=== PATIENT | male | born 1955 | race Hispanic/Latino ===

== ENCOUNTER 2017-09-23 17:51 | Emergency (ER) | payer MEDICAID ==
[2017-09-23 19:21] LABS: Basophils % (Auto) 0.9 % (0.0-1.8); Eosinophils % (Auto) 1.7 % (0.0-4.3); Hematocrit 45.1 % (35.5-45.6); Hemoglobin 14.9 gm/dl (11.8-15.2); Mean Corpuscular HGB Conc 33 % (32-34); Mean Corpuscular Hemoglobin 29 pg (28-32); Mean Corpuscular Volume 87 fl (84-94); Platelet Count 320 K/mm3 (140-440); Red Blood Count 5.18 M/mm3 (3.65-5.03); Red Cell Distribution Width 14.5 % (13.2-15.2); White Blood Count 14.1 K/mm3 (4.5-11.0)
[2017-09-23 19:31] LABS: Bacteria,Urine 1+ /HPF (Negative); Bilirubin,Urine NEG (Negative); Blood,Urine MOD (Negative); Ketones,Urine NEG (Negative); Leukocyte Esterase,Urine NEG (Negative); Mucus,Urine FEW /HPF; Nitrite,Urine NEG (Negative); Protein,Urine <15 mg/dL mg/dL (Negative); Urobilinogen,Urine < 2.0 mg/dL (<2.0)
[2017-09-23 19:40] LABS: Alanine Aminotransferase 10 units/L (7-56); Albumin 4.7 g/dL (3.9-5); Albumin/Globulin Ratio 1.5 %; Alkaline Phosphatase 63 units/L (35-129); Anion Gap 17 mmol/L; BUN/Creatinine Ratio 17; Blood Urea Nitrogen 17 mg/dL (9-20); Calcium 9.9 mg/dL (8.4-10.2); Carbon Dioxide 30 mmol/L (22-30); Chloride 98.6 mmol/L (98-107); Glucose 103 mg/dL (75-100); Potassium 3.6 mmol/L (3.6-5.0); Sodium 142 mmol/L (137-145); Total Protein 7.8 g/dL (6.3-8.2)
--- NOTE | 2017-09-23 19:44 | Cat Scan Report ---
FINAL REPORT EXAM: CT HEAD/BRAIN WO CON HISTORY: headache TECHNIQUE: Standard unenhanced CT of the head at 5.0 millimeter axial increments PRIORS: None. FINDINGS: The ventricular system is normal in size and configuration. There is no evidence for parenchymal volume loss. Incidental arachnoid cyst is present in the posterior fossa. There is no evidence for mass lesion, mass effect, midline shift, acute intracranial hemorrhage, or acute ischemia/ infarction. Visualized paranasal sinuses are clear. IMPRESSION: Negative CT of the head. No acute intracranial process noted.
[2017-09-23] MEDS ORDERED: ATROVENT IH ONE (22:13)
[2017-09-23] MEDS ORDERED: PROVENTIL IH ONE (22:13)
[2017-09-23] MEDS ORDERED: NACL ONE (22:22)
--- NOTE | 2017-09-23 22:30 | Emergency Department Report ---
ED Dizziness HPI - General Chief Complaint: Dizziness Stated Complaint: HEADACHE/DIZINESS Time Seen by Provider: 09/23/17 22:10 Source: patient Mode of arrival: Ambulatory Limitations: No Limitations - History of Present Illness Initial Comments: 61 YO MALE WITH MULTIPLE COMPLAINTS WHO RELATES THAT 2 YEARS AGO HE HAD HEAD TRAUMA WHICH CAUSED HIM TO HAVE A SEIZURE. NOW FOR THE PAST 5 WEEKS , HE HAS BEEN EXPERIENCING PAIN IN HIS HEAD WHERE THE TRAUMA WAS. THIS PAIN COMES WHEN HE LAYS DOWN, AND HE HAS BEEN DIZZY WHEN GETTING UP FOR 5 WEEKS. HE ALSO HAS BLOOD IN THE URINE AND LEFT FLANK PAIN FOR 2 DAYS AND FELT THAT THIS MIGHT BE A KEDNEYS TONE. HE WAS TOLD THE HE HAD. HE DENIES CHEST PAIN, S0B. HE DOES NOT WORK AND IS ON DISABILITY . 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 MD Complaint: dizziness -: week(s) (5) Timing: unsure Description: sense of movement History of Same: No History of Trauma: Yes (2 YEARS AGO HEAD TRAUMA) Severity: mild Worsens With: movement, position (GETTING UP ) Associated Symptoms: denies: chest pain, cough, diaphoresis, fever/chills, loss of appetite, rash, seizure, shortness of breath, syncope, weakness - Related Data Home Medications Medication Instructions Recorded Confirmed Last Taken Levothyroxine [Synthroid] 50 mcg PO DAILY 06/14/15 06/21/15 Unknown Lisinopril 10 mg PO DAILY 06/14/15 06/21/15 Unknown Triamter/Hctz 37.5-25 mg 1 tab PO DAILY 06/14/15 06/21/15 Unknown levETIRAcetam [Keppra TAB] 1,000 mg PO BID 06/14/15 06/21/15 Unknown Previous Rx's Medication Instructions Recorded Last Taken Type Folic Acid [Folvite] 1 mg PO QDAY #30 tablet 06/23/15 Unknown Rx Thiamine [Vitamin B-1] 100 mg PO QDAY #30 tablet 06/23/15 Unknown Rx HYDROcodone/APAP 5-325 [White 1 each PO Q6HR PRN #15 tablet 07/13/16 Unknown Rx 5/325] Ibuprofen [Motrin 600 MG tab] 600 mg PO Q8H PRN #30 tablet 07/13/16 Unknown Rx Ibuprofen [Motrin] 800 mg PO Q8HR PRN #15 tablet 10/05/16 Unknown Rx HYDROcodone/APAP 7.5-325 [White 1 each PO Q6HR PRN #10 tablet 09/24/17 Unknown Rx 7.5-325 mg TAB] Allergies Allergy/AdvReac Type Severity Reaction Status Date / Time aspirin AdvReac Bleeding Verified 09/23/17 18:23 tramadol AdvReac Seizure Verified 09/23/17 18:23 ED Review of Systems ROS: Stated complaint: HEADACHE/DIZINESS Other details as noted in HPI Constitutional: denies: chills, fever Eyes: denies: eye pain, eye discharge, vision change ENT: denies: ear pain, throat pain Respiratory: denies: cough, shortness of breath, wheezing Cardiovascular: denies: chest pain, palpitations Endocrine: no symptoms reported Gastrointestinal: abdominal pain (LEFT ABDOMEN). denies: nausea, diarrhea Genitourinary: hematuria. denies: urgency, dysuria Musculoskeletal: back pain (LEFT SIDE). denies: joint swelling, arthralgia Skin: denies: rash, lesions Neurological: headache. denies: weakness, paresthesias Psychiatric: denies: anxiety, depression Hematological/Lymphatic: denies: easy bleeding, easy bruising ED Past Medical Hx - Past Medical History Hx Hypertension: Yes Hx Congestive Heart Failure: No Hx Diabetes: No Hx Seizures: Yes Hx Asthma: No Hx COPD: No Additional medical history: gout. Chronic alcohol abuse - Surgical History Additional Surgical History: spleen removal - Social History Smoking Status: Never Smoker Substance Use Type: None - Medications Home Medications: Home Medications Medication Instructions Recorded Confirmed Last Taken Type Levothyroxine [Synthroid] 50 mcg PO DAILY 06/14/15 06/21/15 Unknown History Lisinopril 10 mg PO DAILY 06/14/15 06/21/15 Unknown History Triamter/Hctz 37.5-25 mg 1 tab PO DAILY 06/14/15 06/21/15 Unknown History levETIRAcetam [Keppra TAB] 1,000 mg PO BID 06/14/15 06/21/15 Unknown History Folic Acid [Folvite] 1 mg PO QDAY #30 tablet 06/23/15 Unknown Rx Thiamine [Vitamin B-1] 100 mg PO QDAY #30 tablet 06/23/15 Unknown Rx HYDROcodone/APAP 5-325 [White 1 each PO Q6HR PRN #15 tablet 07/13/16 Unknown Rx 5/325] Ibuprofen [Motrin 600 MG tab] 600 mg PO Q8H PRN #30 tablet 07/13/16 Unknown Rx Ibuprofen [Motrin] 800 mg PO Q8HR PRN #15 tablet 10/05/16 Unknown Rx HYDROcodone/APAP 7.5-325 [White 1 each PO Q6HR PRN #10 tablet 09/24/17 Unknown Rx 7.5-325 mg TAB] ED Physical Exam - General Limitations: No Limitations General appearance: alert, in no apparent distress - Head Head exam: Present: atraumatic, normocephalic - Eye Eye exam: Present: normal appearance, EOMI - ENT ENT exam: Present: mucous membranes moist - Neck Neck exam: Present: normal inspection - Respiratory Respiratory exam: Present: normal lung sounds bilaterally. Absent: respiratory distress, wheezes, rales, rhonchi - Cardiovascular Cardiovascular Exam: Present: regular rate, normal rhythm, normal heart sounds. Absent: systolic murmur, diastolic murmur, rubs, gallop - GI/Abdominal GI/Abdominal exam: Present: soft, tenderness (LEFT FLANK), normal bowel sounds, other (MIDLINE LARGE SURGICAL SCAR). Absent: distended, guarding, rebound - Rectal Rectal exam: Present: deferred - Extremities Exam Extremities exam: Present: normal inspection, full ROM - Back Exam Back exam: Present: normal inspection, full ROM, tenderness (LEFT FLANK) - Neurological Exam Neurological exam: Present: alert, oriented X3, CN II-XII intact, normal gait. Absent: altered, motor sensory deficit - Psychiatric Psychiatric exam: Present: normal affect, normal mood - Skin Skin exam: Present: warm, dry, intact, normal color. Absent: rash ED Course Vital Signs 09/23/17 09/23/17 09/23/17 18:25 21:57 22:57 Temperature 98.7 F Pulse Rate 62 87 Pulse Rate [ Right Lower Lobe] Respiratory 16 18 18 Rate Respiratory Rate [Right Lower Lobe] Blood Pressure 142/97 Blood Pressure 125/83 [Left] O2 Sat by Pulse 98 97 Oximetry 09/23/17 23:50 Temperature Pulse Rate Pulse Rate [ 85 Right Lower Lobe] Respiratory Rate Respiratory 16 Rate [Right Lower Lobe] Blood Pressure Blood Pressure [Left] O2 Sat by Pulse Oximetry ED Medical Decision Making - Lab Data Result diagrams: 09/23/17 18:41 09/23/17 18:41 - Radiology Data Radiology results: report reviewed (CXR:NEGATIVE CT ABD/PELVIS:NEGATIVE CT HEAD : NEGATIVE) - Medical Decision Making ALL STUDIES ARE NEGATIVE THUS I WILL D/C PT HOME. HE IS ASKING FOR PAIN MEDICATION. I DO NOT KNOW WHAT I AM TREATING SICE THE STUDIES ARE NEGATIVE Critical care attestation.: If time is entered above; I have spent that time in minutes in the direct care of this critically ill patient, excluding procedure time. ED Disposition Clinical Impression: Dizziness due to old head injury, Flank pain, Renal cyst Clinical Impression: (Ruled Out): Dizziness Disposition: TO HOME OR SELFCARE Is pt being admited?: No Does the pt Need Aspirin: No Condition: Stable Instructions: Dizziness (ED), Acute Headache (ED), Flank Pain (ED) Additional Instructions: RETURN RTO THE ER FOR ANY CONCERNS Prescriptions: HYDROcodone/APAP 7.5-325 [White 7.5-325 mg TAB] 1 each PO Q6HR PRN #10 tablet PRN Reason: Pain Referrals: PRIMARY CARE, [Primary Care Provider] - 3-[address] [facility] [Outside] - 3-5 Days Time of Disposition: 01:49
[2017-09-23] MEDS ORDERED: ZOFRAN IV ONE (22:33)
[2017-09-23] MEDS ORDERED: MORPHINE IV ONE (22:33)
[2017-09-23] MEDS ORDERED: NACL 0.9% 1000 ML 1,000 ML IV ONE (22:38)
--- NOTE | 2017-09-23 23:40 | Cat Scan Report ---
FINAL REPORT EXAM: CT ABDOMEN PELVIS WO/W CON HISTORY: ABD PAIN TECHNIQUE: Standard unenhanced and enhanced CT of the abdomen and pelvis. Delayed imaging through the kidneys and bladder was obtained. Coronal and sagittal reconstruction was also performed. Contrast: 100 mL Omnipaque 300 given IV. PRIORS: None. FINDINGS: Within the abdomen, the liver, spleen, pancreas, gallbladder, adrenal glands, and left kidney are unremarkable. A subcentimeter hypodensity in the right kidney is likely a small cyst. No evidence for retroperitoneal or pelvic lymphadenopathy is seen. Moderate stool is present throughout the colon. The bowel loops have normal caliber. No soft tissue mass, fluid collection, inflammatory change, or free air is seen within the abdomen or pelvis. The appendix is normal. Ventral hernia repair is noted over the midline. Calcification of the aorta is seen. Within the pelvis, the bladder is unremarkable. The prostate is normal. No evidence for mass or lymphadenopathy is seen in the pelvis. Sigmoid diverticulosis is noted without active diverticulitis. Images through the upper abdomen include the lung bases which are expanded and clear. Bony structures show severe disc space narrowing L5-S1. IMPRESSION: 1. no acute intra-abdominal process noted. 2. The subcentimeter hypodensity in the right kidney is likely a small cyst. 3. Evidence for prior ventral hernia repair 4. Sigmoid diverticulosis
--- NOTE | 2017-09-23 23:43 | XRay Report ---
FINAL REPORT EXAM: XR CHEST ROUTINE 2V HISTORY: PAIN . TECHNIQUE: PA and lateral views of the chest PRIORS: None. FINDINGS: Lines, tubes, and devices: N/A Lungs and pleura: Trachea is normal in position. Lungs are clear of infiltrate, pleural effusion, vascular congestion, or pneumothorax. Cardiomediastinal silhouette: Cardiac and mediastinal silhouettes are unremarkable. Other: Bony structures demonstrate degenerative disc changes in the mid and lower thoracic spine. Remote healed rib fractures involving the posterior lateral right 2nd through 6th ribs is seen. Degenerative changes in the right glenohumeral joint are present. IMPRESSION: No acute cardiopulmonary process seen.
[2017-09-24 00:13] LABS: Creatine Kinase 50 units/L (55-170)
[2017-09-24 00:16] LABS: Creatine Kinase MB < 1.0 ng/mL (0.0-4.0)
[2017-09-24] MEDS ORDERED: PERCOCET 5/325 PO ONE (01:51)
[2017-09-24 02:22] VITALS: BP 132/80
== END 2017-09-24 02:23 | disposition home or self-care (01) ==
LOC: ED 17:51
DX: R42 Dizziness and giddiness (principal); N28.1 Cyst of kidney, acquired; R10.9 Unspecified abdominal pain; R56.9 Unspecified convulsions; Z88.6 Allergy status to analgesic agent; Z88.8 Allergy status to other drugs, medicaments and biological substances
CPT/HCPCS: 36415; 70450; 71020; 74178; 80053; 81001; 82550; 82553; 84484; 85025; 85379; 94640; 96361; 96374; 96375; 99285; J2270; J2405; J7030; Q9967

== ENCOUNTER 2017-10-22 17:16 | Emergency (ER) | payer MEDICAID ==
[2017-10-22] MEDS ORDERED: REGLAN IV ONE (17:46)
--- NOTE | 2017-10-22 17:50 | Emergency Department Report ---
Chief Complaint: Abdominal Pain Stated Complaint: HEADACHE/ SIDE PAIN Time Seen by Provider: 10/22/17 17:35 - HPI History of Present Illness: Seen a month ago for similar still with headaches flank pain hematuria, worse headache worse low back pain question dysuria. - Exam Vital Signs: Vital Signs 10/22/17 17:22 Temperature 98.3 F Pulse Rate 63 Respiratory 18 Rate Blood Pressure 143/83 O2 Sat by Pulse 98 Oximetry Physical Exam: Strength is equal bilaterally vital signs stable afebrile atraumatic normocephalic, neck supple. MSE screening note: Focused history and physical exam performed. Due to findings the following was ordered: Laboratory studies and imaging patient to main ED for further evaluation ED Disposition for MSE Condition: Stable
[2017-10-22 18:29] LABS: Bilirubin,Urine NEG (Negative); Blood,Urine MOD (Negative); Ketones,Urine NEG (Negative); Leukocyte Esterase,Urine TR (Negative); Mucus,Urine FEW /HPF; Nitrite,Urine NEG (Negative); Protein,Urine <15 mg/dL mg/dL (Negative); Urobilinogen,Urine < 2.0 mg/dL (<2.0)
[2017-10-22 18:35] LABS: Basophils % (Auto) 0.8 % (0.0-1.8); Eosinophils % (Auto) 0.1 % (0.0-4.3); Hematocrit 41.1 % (35.5-45.6); Hemoglobin 13.9 gm/dl (11.8-15.2); Mean Corpuscular HGB Conc 34 % (32-34); Mean Corpuscular Hemoglobin 30 pg (28-32); Mean Corpuscular Volume 90 fl (84-94); Platelet Count 253 K/mm3 (140-440); Red Blood Count 4.57 M/mm3 (3.65-5.03); Red Cell Distribution Width 14.8 % (13.2-15.2); White Blood Count 11.1 K/mm3 (4.5-11.0)
[2017-10-22 18:38] LABS: Alanine Aminotransferase 17 units/L (7-56); Albumin/Globulin Ratio 1.4 %; Alkaline Phosphatase 47 units/L (35-129); Anion Gap 18 mmol/L; BUN/Creatinine Ratio 16; Blood Urea Nitrogen 16 mg/dL (9-20); Carbon Dioxide 27 mmol/L (22-30); Chloride 100.6 mmol/L (98-107); Glucose 183 mg/dL (75-100); Potassium 3.8 mmol/L (3.6-5.0); Sodium 142 mmol/L (137-145); Total Protein 6.9 g/dL (6.3-8.2)
--- NOTE | 2017-10-22 18:45 | Cat Scan Report ---
FINAL REPORT PROCEDURE: CT HEAD/BRAIN WO CON TECHNIQUE: Computerized tomography of the head was performed without contrast material. HISTORY: Headache COMPARISON: Prior study 09/23/2017 FINDINGS: Brain: There is no evidence of intracranial hemorrhage. No parenchymal hemorrhage is seen. No mass lesions or mass effect is identified. No abnormal extra-axial fluid collections or masses are seen. There is CSF dense material in the posterior inferior aspect of the posterior fossa of the brain. This is unchanged from the prior study. 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 I cannot exclude an arachnoid cyst. This is stable. There is some decreased density seen in the periventricular white matter without mass effect. This is fairly symmetric and does not exhibit any mass effect consistent with gliosis probably on the basis of microvascular disease or white matter changes of aging. Ventricles: The ventricles, sulcal pattern and fissures are prominent consistent with atrophy. Bones: No evidence of acute fracture. Paranasal sinuses: Visualized portions are clear. Mastoid air cells: clear IMPRESSION: Stable exam. No acute intracranial abnormalities are identified. There is evidence of mild atrophy and gliosis. This is unchanged. 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 This is unchanged. No other abnormalities are identified.
[2017-10-22 19:05] LABS: Calcium 9.7 mg/dL (8.4-10.2)
--- NOTE | 2017-10-22 19:15 | Cat Scan Report ---
FINAL REPORT PROCEDURE: CT ABDOMEN PELVIS WO CON TECHNIQUE: Computerized axial tomography of the abdomen and pelvis was performed without intravenous contrast. This study is performed without intravascular contrast material and its sensitivity for abdominal and pelvic pathology, including neoplasms, inflammation, abscess, free fluid, thrombosis, arterial dissection and infarction, is reduced compared with a contrast enhanced study. Prior CT scan abdomen and pelvis 09/23/2017 HISTORY: flank pain. hematuria COMPARISON: No prior studies are available for comparison. FINDINGS: Lower Lung levin: No focal abnormality seen. Upper Abdomen: Gallbladder is partially contracted otherwise unremarkable. The liver, the adrenal glands, the pancreas and the spleen are unremarkable. There is a surgical mesh visualized in the anterior abdominal wall superior to the umbilicus. No hernias are visualized. Kidneys, Ureters and Urinary bladder: Renal arterial calcifications visualized. No renal calculi or masses are identified. Ureters are not distended. No ureteral calculi are visualized. Urinary bladder is only partially filled and shows no focal abnormality. Calcifications are seen in the lower pelvis which appear to represent phleboliths. Retroperitoneum: Atherosclerotic changes are seen in the abdominal aorta. No aneurysm is visualized. Nonspecific subcentimeter lymph nodes are seen in the retroperitoneum. No pathologically enlarged lymph nodes are identified. Bowel: Mild diverticulosis seen in the left side of the colon without evidence of diverticulitis. No evidence of bowel obstruction or ascites. There is no free intraperitoneal gas. Normal-appearing appendix is visualized in the right lower quadrant. Other: No acute bony abnormalities are seen. IMPRESSION: No acute abnormalities are identified.. Renal arterial calcifications visualized. No renal or ureteral calculi are identified. Postsurgical changes anterior abdominal wall. Mild diverticulosis left side of the colon without evidence of diverticulitis. No other abnormalities are identified.
[2017-10-22] MEDS ORDERED: TORADOL IV ONE (20:53)
--- NOTE | 2017-10-22 20:59 | Emergency Department Report ---
ED Abdominal Pain HPI - General Chief Complaint: Abdominal Pain Stated Complaint: HEADACHE/ SIDE PAIN Time Seen by Provider: 10/22/17 17:35 Source: patient Mode of arrival: Ambulatory Limitations: No Limitations - History of Present Illness Initial Comments: Patient is 61 years old male history of kidney stone presented today with right flank pain and headache for the last 3 days. Patient stated he had hematuria and dysuria, increased frequency. Patient denied any fever. Patient has similar presentation last months. MD Complaint: abdominal pain -: days(s) Location: R flank Migration to: no migration Severity: moderate Quality: stabbing Associated Symptoms: nausea, vomiting - Related Data Home Medications Medication Instructions Recorded Confirmed Last Taken Levothyroxine [Synthroid] 50 mcg PO DAILY 06/14/15 06/21/15 Unknown Lisinopril 10 mg PO DAILY 06/14/15 06/21/15 Unknown Triamter/Hctz 37.5-25 mg 1 tab PO DAILY 06/14/15 06/21/15 Unknown levETIRAcetam [Keppra TAB] 1,000 mg PO BID 06/14/15 06/21/15 Unknown Previous Rx's Medication Instructions Recorded Last Taken Type Folic Acid [Folvite] 1 mg PO QDAY #30 tablet 06/23/15 Unknown Rx Thiamine [Vitamin B-1] 100 mg PO QDAY #30 tablet 06/23/15 Unknown Rx HYDROcodone/APAP 5-325 [[place] 1 each PO Q6HR PRN #15 tablet 07/13/16 Unknown Rx 5/325] Ibuprofen [Motrin 600 MG tab] 600 mg PO Q8H PRN #30 tablet 07/13/16 Unknown Rx Ibuprofen [Motrin] 800 mg PO Q8HR PRN #15 tablet 10/05/16 Unknown Rx HYDROcodone/APAP 7.5-325 [[place] 1 each PO Q6HR PRN #10 tablet 09/24/17 Unknown Rx 7.5-325 mg TAB] Allergies Allergy/AdvReac Type Severity Reaction Status Date / Time aspirin AdvReac Bleeding Verified 09/23/17 18:23 tramadol AdvReac Seizure Verified 09/23/17 18:23 ED Review of Systems ROS: Stated complaint: HEADACHE/ SIDE PAIN Other details as noted in HPI Comment: All other systems reviewed and negative Constitutional: denies: chills, fever Respiratory: denies: cough Cardiovascular: denies: chest pain, palpitations, dyspnea on exertion Gastrointestinal: abdominal pain, nausea. denies: vomiting, diarrhea, constipation, hematemesis, melena, hematochezia Genitourinary: urgency, dysuria, frequency, hematuria. denies: testicular pain , testicular mass Neurological: headache. denies: weakness, numbness, paresthesias, confusion, abnormal gait, vertigo ED Past Medical Hx - Past Medical History Hx Hypertension: Yes Hx Congestive Heart Failure: No Hx Diabetes: No Hx Seizures: Yes Hx Asthma: No Hx COPD: No Additional medical history: gout. Chronic alcohol abuse - Surgical History Additional Surgical History: spleen removal - Social History Smoking Status: Never Smoker Substance Use Type: None - Medications Home Medications: Home Medications Medication Instructions Recorded Confirmed Last Taken Type Levothyroxine [Synthroid] 50 mcg PO DAILY 06/14/15 06/21/15 Unknown History Lisinopril 10 mg PO DAILY 06/14/15 06/21/15 Unknown History Triamter/Hctz 37.5-25 mg 1 tab PO DAILY 06/14/15 06/21/15 Unknown History levETIRAcetam [Keppra TAB] 1,000 mg PO BID 06/14/15 06/21/15 Unknown History Folic Acid [Folvite] 1 mg PO QDAY #30 tablet 06/23/15 Unknown Rx Thiamine [Vitamin B-1] 100 mg PO QDAY #30 tablet 06/23/15 Unknown Rx HYDROcodone/APAP 5-325 [[place] 1 each PO Q6HR PRN #15 tablet 07/13/16 Unknown Rx 5/325] Ibuprofen [Motrin 600 MG tab] 600 mg PO Q8H PRN #30 tablet 07/13/16 Unknown Rx Ibuprofen [Motrin] 800 mg PO Q8HR PRN #15 tablet 10/05/16 Unknown Rx HYDROcodone/APAP 7.5-325 [[place] 1 each PO Q6HR PRN #10 tablet 09/24/17 Unknown Rx 7.5-325 mg TAB] ED Physical Exam - General Limitations: No Limitations General appearance: alert, in no apparent distress - Head Head exam: Present: atraumatic, normocephalic, normal inspection - Eye Eye exam: Present: normal appearance, PERRL - ENT ENT exam: Present: normal exam, normal orophraynx, mucous membranes moist - Neck Neck exam: Present: normal inspection, full ROM. Absent: tenderness, meningismus, lymphadenopathy, thyromegaly - Respiratory Respiratory exam: Present: normal lung sounds bilaterally. Absent: respiratory distress, wheezes, rales, rhonchi, stridor, chest wall tenderness, accessory muscle use, decreased breath sounds, prolonged expiratory - Cardiovascular Cardiovascular Exam: Present: regular rate, normal rhythm, normal heart sounds - GI/Abdominal GI/Abdominal exam: Present: soft, normal bowel sounds. Absent: distended, tenderness, guarding, rebound, rigid, organomegaly, mass, bruit, pulsatile mass , hernia - Extremities Exam Extremities exam: Present: normal inspection, normal capillary refill. Absent: tenderness, pedal edema, joint swelling, calf tenderness - Back Exam Back exam: Present: normal inspection, full ROM, CVA tenderness (R). Absent: tenderness, CVA tenderness (L), muscle spasm, paraspinal tenderness, vertebral tenderness - Neurological Exam Neurological exam: Present: alert, oriented X3, CN II-XII intact, normal gait - Skin Skin exam: Present: warm, intact, normal color ED Course Vital Signs 10/22/17 17:22 Temperature 98.3 F Pulse Rate 63 Respiratory 18 Rate Blood Pressure 143/83 O2 Sat by Pulse 98 Oximetry ED Medical Decision Making - Lab Data Result diagrams: 10/22/17 17:53 10/22/17 17:53 - Radiology Data Radiology results: report reviewed Referring Physician: KARELY COLLIER Patient Name: ISIDRO RAMIREZ Date of : 1955 Sex: Male Report Date: 2017-10-22 Report Status: Finalized Findings [address] [address] Cat Scan Report Signed Patient: ISIDRO RAMIREZ MR#: [id number] : 1955 Acct:[id number] Age/Sex: 61 / M ADM Date: 10/22/17 Loc: ED Attending Dr: Ordering Physician: KARELY COLLIER MD Date of Service: 10/22/17 Procedure(s): CT head/brain wo con Accession Number(s): [id number] cc: KARELY COLLIER MD FINAL REPORT PROCEDURE: CT HEAD/BRAIN WO CON TECHNIQUE: Computerized tomography of the head was performed without contrast material. HISTORY: Headache COMPARISON: Prior study 09/23/2017 FINDINGS: Brain: There is no evidence of intracranial hemorrhage. No parenchymal hemorrhage is seen. No mass lesions or mass effect is identified. No abnormal extra-axial fluid collections or masses are seen. There is CSF dense material in the posterior inferior aspect of the posterior fossa of the brain. This is unchanged from the prior study. 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 I cannot exclude an arachnoid cyst. This is stable. There is some decreased density seen in the periventricular white matter without mass effect. This is fairly symmetric and does not exhibit any mass effect consistent with gliosis probably on the basis of microvascular disease or white matter changes of aging. Ventricles: The ventricles, sulcal pattern and fissures are prominent consistent with atrophy. Bones: No evidence of acute fracture. Paranasal sinuses: Visualized portions are clear. Mastoid air cells: clear IMPRESSION: Stable exam. No acute intracranial abnormalities are identified. There is evidence of mild atrophy and gliosis. This is unchanged. 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 This is unchanged. No other abnormalities are identified. Transcribed By: DFN Dictated By: BRITTNY MITCHELL MD Electronically Authenticated By: BRITTNY MITCHELL MD Signed Date/Time: 10/22/171441 DD/ 41 TD/TT: 10/22/171441 Referring Physician: KARELY COLLIER Patient Name: ISIDRO RAMIREZ Date of : 1955 Sex: Male Report Date: 2017-10-22 Report Status: Finalized Findings [address] [address] Cat Scan Report Signed Patient: ISIDRO RAMIREZ MR#: [id number] : 1955 Acct:[id number] Age/Sex: 61 / M ADM Date: 10/22/17 Loc: ED Attending Dr: Ordering Physician: KARELY COLLIER MD Date of Service: 10/22/17 Procedure(s): CT abdomen pelvis wo con Accession Number(s): [id number] cc: KARELY COLLIER MD FINAL REPORT PROCEDURE: CT ABDOMEN PELVIS WO CON TECHNIQUE: Computerized axial tomography of the abdomen and pelvis was performed without intravenous contrast. This study is performed without intravascular contrast material and its sensitivity for abdominal and pelvic pathology, including neoplasms, inflammation, abscess, free fluid, thrombosis, arterial dissection and infarction, is reduced compared with a contrast enhanced study. Prior CT scan abdomen and pelvis 09/23/2017 HISTORY: flank pain. hematuria COMPARISON: No prior studies are available for comparison. FINDINGS: Lower Lung levin: No focal abnormality seen. Upper Abdomen: Gallbladder is partially contracted otherwise unremarkable. The liver, the adrenal glands, the pancreas and the spleen are unremarkable. There is a surgical mesh visualized in the anterior abdominal wall superior to the umbilicus. No hernias are visualized. Kidneys, Ureters and Urinary bladder: Renal arterial calcifications visualized. No renal calculi or masses are identified. Ureters are not distended. No ureteral calculi are visualized. Urinary bladder is only partially filled and shows no focal abnormality. Calcifications are seen in the lower pelvis which appear to represent phleboliths. Retroperitoneum: Atherosclerotic changes are seen in the abdominal aorta. No aneurysm is visualized. Nonspecific subcentimeter lymph nodes are seen in the retroperitoneum. No pathologically enlarged lymph nodes are identified. Bowel: Mild diverticulosis seen in the left side of the colon without evidence of diverticulitis. No evidence of bowel obstruction or ascites. There is no free intraperitoneal gas. Normal-appearing appendix is visualized in the right lower quadrant. Other: No acute bony abnormalities are seen. IMPRESSION: No acute abnormalities are identified.. Renal arterial calcifications visualized. No renal or ureteral calculi are identified. Postsurgical changes anterior abdominal wall. Mild diverticulosis left side of the colon without evidence of diverticulitis. No other abnormalities are identified. Transcribed By: EMEKA Dictated By: BRITTNY MITCHELL MD Electronically Authenticated By: BRITTNY MITCHELL MD Signed Date/Time: 10/22/171511 DD/ 11 TD/TT: 10/22/171511 Critical care attestation.: If time is entered above; I have spent that time in minutes in the direct care of this critically ill patient, excluding procedure time. ED Disposition Clinical Impression: Abdominal pain, Headache Disposition: -01 TO HOME OR SELFCARE Is pt being admited?: No Condition: Stable Instructions: Flank Pain (ED), Acute Headache (ED) Referrals: PHILIP CAREY MD [Primary Care Provider] - 3-5 Days
[2017-10-22] MEDS ORDERED: REGLAN ONE (21:11)
[2017-10-22] MEDS ORDERED: TORADOL IM ONE (21:21)
[2017-10-22] MEDS ORDERED: REGLAN IM ONE (21:27)
[2017-10-22 21:37] VITALS: BP 172/93
== END 2017-10-22 21:38 | disposition home or self-care (01) ==
LOC: ED 17:16
DX: R10.9 Unspecified abdominal pain (principal); R51 Headache; I10 Essential (primary) hypertension; R56.9 Unspecified convulsions; Z88.6 Allergy status to analgesic agent; Z88.8 Allergy status to other drugs, medicaments and biological substances
CPT/HCPCS: 36415; 70450; 74176; 80053; 81001; 85025; 96372; 99284; J1885; J2765

== ENCOUNTER 2018-01-18 14:03 | Emergency (ER) | payer MEDICAID ==
[2018-01-18 14:11] VITALS: BP 172/91
--- NOTE | 2018-01-18 15:26 | Cat Scan Report ---
FINAL REPORT PROCEDURE: CT HEAD/BRAIN WO CON TECHNIQUE: Computerized tomography of the head was performed without contrast material. HISTORY: NULL, blurred vision. COMPARISON: Prior CT scan of the brain 10/22/2017 FINDINGS: Brain: There is no evidence of intracranial hemorrhage. No parenchymal hemorrhage is seen. No mass lesions or mass effect is identified. No abnormal extra-axial fluid collections or masses are seen. There is some decreased density seen in the periventricular white matter without mass effect. This is fairly symmetric and does not exhibit any mass effect consistent with gliosis probably on the basis of microvascular disease or white matter changes of aging. Ventricles: The sulcal pattern and fissures are mildly prominent consistent with mild atrophy. Ventricles are normal size and are midline. There is stable prominent CSF space posterior to the cerebellum, posterior fossa likely representing giant cisterna magna. Arachnoid cyst cannot be entirely excluded. This is unchanged. Bones: No evidence of acute fracture. Paranasal sinuses: Visualized portions appear clear. Mastoid air cells: clear IMPRESSION: No acute abnormalities are identified. There is evidence of mild atrophy and gliosis which appears stable. 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 This is unchanged. Arachnoid cyst cannot be entirely excluded.
== END 2018-01-18 21:00 | disposition left against medical advice (07) ==
LOC: ED 14:03
DX: M54.9 Dorsalgia, unspecified (principal); Z53.21 Procedure and treatment not carried out due to patient leaving prior to being seen by health care provider
CPT/HCPCS: 70450

== ENCOUNTER 2018-01-27 18:04 | Emergency (ER) | payer MEDICAID ==
[2018-01-27 18:12] VITALS: BP 126/95
--- NOTE | 2018-01-27 19:57 | Emergency Department Report ---
ED Headache HPI - General Chief Complaint: Headache Stated Complaint: HEAD/NECK PAIN Time Seen by Provider: 01/27/18 19:56 - History of Present Illness Initial Comments: 62-year-old male comes in pain stating that he has pain in the back of his head that goes down into his neck. Patient was seen here a few weeks ago for the same thing and got a CT scan but then left before getting the results. Patient states it has not gotten any better so came back. Patient has past medical history of seizures, hypertension, hypothyroidism, CVA, TIA, osteoarthritis, renal cyst, chronic pain, alcohol abuse, drug abuse,. Patient reports he does not have a primary care provider he's last seen his neurologist about 6 months ago. He reports he is on his last prescription of his Keppra. He reports has multiple allergies to aspirin and NSAIDs and tramadol. Quality: moderate Allergies/Adverse Reactions: Allergies aspirin Adverse Reaction (Verified 09/23/17 18:23) Bleeding NSAIDS (Non-Steroidal Anti-Inflamma Adverse Reaction (Verified 01/18/18 14:15) Unknown tramadol Adverse Reaction (Verified 09/23/17 18:23) Seizure Home Medications: Ambulatory Orders Levothyroxine [Synthroid] 50 mcg PO DAILY 06/14/15 Lisinopril 10 mg PO DAILY 06/14/15 Triamter/Hctz 37.5-25 mg 1 tab PO DAILY 06/14/15 Folic Acid [Folvite] 1 mg PO QDAY #30 tablet 06/23/15 Thiamine [Vitamin B-1] 100 mg PO QDAY #30 tablet 06/23/15 HYDROcodone/APAP 5-325 [[place] 5/325] 1 each PO Q6HR PRN #15 tablet 07/13/16 Ibuprofen [Motrin 600 MG tab] 600 mg PO Q8H PRN #30 tablet 07/13/16 Ibuprofen [Motrin] 800 mg PO Q8HR PRN #15 tablet 10/05/16 HYDROcodone/APAP 7.5-325 [[place] 7.5-325 mg TAB] 1 each PO Q6HR PRN #10 tablet HYDROcodone/APAP 7.5-325 [[place] 7.5-325 mg TAB] 1 each PO Q8HR PRN #9 tablet Tamsulosin [Flomax] 0.4 mg PO QDAY #10 cap 12/25/17 Acetaminophen/Codeine [Tylenol /Codeine # 3 tab] 1 tab PO Q6H PRN #12 tab levETIRAcetam [Keppra TAB] 1,000 mg PO BID 30 Days #60 tablet 01/27/18 ED Review of Systems ROS: Stated complaint: HEAD/NECK PAIN Other details as noted in HPI Constitutional: denies: chills, fever Eyes: denies: eye pain, eye discharge, vision change ENT: denies: ear pain, throat pain Respiratory: denies: cough, shortness of breath, wheezing Cardiovascular: denies: chest pain, palpitations Endocrine: no symptoms reported Gastrointestinal: denies: abdominal pain, nausea, diarrhea Genitourinary: denies: urgency, dysuria Musculoskeletal: denies: back pain, joint swelling, arthralgia Skin: denies: rash, lesions Neurological: headache. denies: weakness, paresthesias Psychiatric: denies: anxiety, depression Hematological/Lymphatic: denies: easy bleeding, easy bruising ED Past Medical Hx - Past Medical History Hx Hypertension: Yes Hx Congestive Heart Failure: No Hx Diabetes: No Hx Seizures: Yes Hx Asthma: No Hx COPD: No Additional medical history: gout - Surgical History Additional Surgical History: spleen removal, hernia repair, ulcers. - Social History Smoking Status: Never Smoker Substance Use Type: None - Medications Home Medications: Home Medications Medication Instructions Recorded Confirmed Last Taken Type Levothyroxine [Synthroid] 50 mcg PO DAILY 06/14/15 06/21/15 Unknown History Lisinopril 10 mg PO DAILY 06/14/15 06/21/15 Unknown History Triamter/Hctz 37.5-25 mg 1 tab PO DAILY 06/14/15 06/21/15 Unknown History Folic Acid [Folvite] 1 mg PO QDAY #30 tablet 06/23/15 Unknown Rx Thiamine [Vitamin B-1] 100 mg PO QDAY #30 tablet 06/23/15 Unknown Rx HYDROcodone/APAP 5-325 [[place] 1 each PO Q6HR PRN #15 tablet 07/13/16 Unknown Rx 5/325] Ibuprofen [Motrin 600 MG tab] 600 mg PO Q8H PRN #30 tablet 07/13/16 Unknown Rx Ibuprofen [Motrin] 800 mg PO Q8HR PRN #15 tablet 10/05/16 Unknown Rx HYDROcodone/APAP 7.5-325 [[place] 1 each PO Q6HR PRN #10 tablet 09/24/17 Unknown Rx 7.5-325 mg TAB] HYDROcodone/APAP 7.5-325 [[place] 1 each PO Q8HR PRN #9 tablet 10/22/17 Unknown Rx 7.5-325 mg TAB] Tamsulosin [Flomax] 0.4 mg PO QDAY #10 cap 10/22/17 Unknown Rx Acetaminophen/Codeine [Tylenol 1 tab PO Q6H PRN #12 tab 01/27/18 Unknown Rx /Codeine # 3 tab] levETIRAcetam [Keppra TAB] 1,000 mg PO BID 30 Days #60 tablet 01/27/18 Unknown Rx ED Physical Exam - General Limitations: No Limitations - Head Head exam: Present: atraumatic, normocephalic - Eye Eye exam: Present: normal appearance - ENT ENT exam: Present: mucous membranes moist - Neck Neck exam: Present: normal inspection - Respiratory Respiratory exam: Present: normal lung sounds bilaterally. Absent: respiratory distress - Cardiovascular Cardiovascular Exam: Present: regular rate, normal rhythm. Absent: systolic murmur, diastolic murmur, rubs, gallop - GI/Abdominal GI/Abdominal exam: Present: soft, normal bowel sounds - Expanded Neurological Exam Expanded Cranial nerves: EOM's Intact: Normal, Gag Reflex: Normal, Tongue Deviation: Normal, Nystagmus: Normal, Facial Sensation: Normal, Facial Palsy with Forehead Movement: Normal, Facial Palsy without Forehead Movement: Normal Cerebellar function: Finger to Nose: Normal, Heel to Brooks: Normal, Romberg: Normal Upper motor neuron: Greg Neglect: Normal, Pronator Drift: Normal Sensory exam: Upper Extremity Light Touch: Normal, Upper Extremity Pin Prick: Normal, Upper Extremity Temperature: Normal, UE 2 Point Discrimination: Normal, Lower Extremity Light Touch: Normal, Lower Extremity Temperature: Normal Motor strength exam: RUE: 5, LUE: 5, RLE: 5, LLE: 5 Best Eye Response ([place]): (4) open spontaneously Best Motor Response ([place]): (6) obeys commands Best Verbal Response ([place]): (5) oriented [place] Total: 15 - Psychiatric Psychiatric exam: Present: normal affect, normal mood - Skin Skin exam: Present: warm, dry, intact, normal color. Absent: rash ED Course Vital Signs 01/27/18 18:09 Temperature 98.9 F Pulse Rate 144 H Respiratory 18 Rate Blood Pressure 126/95 [Right] O2 Sat by Pulse 95 Oximetry - Reevaluation(s) Reevaluation #1: 01/27/18 21:00 Patient reports he feels better since this had the [place] 7.5 mg. Reevaluation #2: 01/27/18 21:19 Patient reports he does not feel dizzy at this time. ED Medical Decision Making - Medical Decision Making Patient has been evaluated by this provider fast track. Chart has been reviewed by this provider CT was reviewed that was done on 01/20/[address] Garrison. Patient's heart rate returns to normal we will discharge patient I will refill this Keppra and is hypertensive medicine. I will refer him to a neurologist as well as her primary care provider. Discharge him on Fioricet for his headaches. Patient verbalized understanding. Critical care attestation.: If time is entered above; I have spent that time in minutes in the direct care of this critically ill patient, excluding procedure time. ED Disposition Clinical Impression: Seizure disorder Headache Qualifiers: Headache type: unspecified Headache chronicity pattern: acute headache Intractability: intractable Qualified Code(s): R51 - Headache Disposition: DC-01 TO HOME OR SELFCARE Is pt being admited?: No Does the pt Need Aspirin: No Condition: Stable Instructions: Acute Headache (ED) Additional Instructions: Please take your pain medication as prescribed. Please follow-up with the neurologist so they can follow you for your seizures and headaches. Please follow-up with the primary care provider to follow here chronic disease management. Prescriptions: Acetaminophen/Codeine [Tylenol /Codeine # 3 tab] 1 tab PO Q6H PRN #12 tab PRN Reason: Pain levETIRAcetam [Keppra TAB] 1,000 mg PO BID 30 Days #60 tablet Referrals: SONYA ARANGO MD [Primary Care Provider] - 3-5 Days [facility] [Provider Group] - 3-5 Days ROSAMARIA HOSKINS MD [Staff Physician] - 3-5 Days DEBBIE ORTEZ MD [Staff Physician] - 3-5 Days GIOVANNI LOVELL MD [Staff Physician] - 3-5 Days Forms: Work/School Release Form(ED)
[2018-01-27] MEDS ORDERED: NORCO 7.5/325 PO ONE (19:59)
== END 2018-01-27 21:35 | disposition home or self-care (01) ==
LOC: ED 18:04
DX: G40.909 Epilepsy, unspecified, not intractable, without status epilepticus (principal); I10 Essential (primary) hypertension; Z88.6 Allergy status to analgesic agent; Z88.8 Allergy status to other drugs, medicaments and biological substances
CPT/HCPCS: 99282

== ENCOUNTER 2018-02-25 19:15 | Emergency (ER) | payer MEDICAID ==
[2018-02-25 19:58] LABS: Basophils # (Auto) 0.1 K/mm3 (0.0-0.1); Basophils % (Auto) 0.7 % (0.0-1.8); Eosinophils # (Auto) 0.1 K/mm3 (0.0-0.4); Eosinophils % (Auto) 1.2 % (0.0-4.3); Hematocrit 39.2 % (35.5-45.6); Hemoglobin 13.3 gm/dl (11.8-15.2); Lymphocytes # (Auto) 4.2 K/mm3 (1.2-5.4); Mean Corpuscular HGB Conc 34 % (32-34); Mean Corpuscular Hemoglobin 30 pg (28-32); Mean Corpuscular Volume 90 fl (84-94); Monocytes # (Auto) 1.2 K/mm3 (0.0-0.8); Monocytes % (Auto) 9.9 % (0.0-7.3); Platelet Count 326 K/mm3 (140-440); Red Blood Count 4.38 M/mm3 (3.65-5.03); Red Cell Distribution Width 13.9 % (13.2-15.2)
[2018-02-25 20:12] LABS: Alanine Aminotransferase 22 units/L (7-56); Albumin 3.9 g/dL (3.9-5); BUN/Creatinine Ratio 11; Blood Urea Nitrogen 9 mg/dL (9-20); Hemolysis Index 2; Lipase 60 units/L (13-60)
[2018-02-25 20:40] LABS: Bilirubin,Urine NEG (Negative); Blood,Urine MOD (Negative); Color,Urine Straw (Yellow); Protein,Urine <15 mg/dL mg/dL (Negative); Urobilinogen,Urine < 2.0 mg/dL (<2.0); WBC,Urine < 1.0 /HPF (0.0-6.0)
[2018-02-25] MEDS ORDERED: SUBLIMAZE IV ONE (23:51)
[2018-02-25] MEDS ORDERED: ZOFRAN IV ONE (23:51)
--- NOTE | 2018-02-25 23:55 | Emergency Department Report ---
ED Abdominal Pain HPI - General Chief Complaint: Abdominal Pain Stated Complaint: STOMACH PAIN Time Seen by Provider: 02/25/18 23:47 Source: patient Mode of arrival: Ambulatory Limitations: No Limitations - History of Present Illness Initial Comments: Patient is 62 years old male with history of hypertension, asthma and kidney stone. Patient presented to the ER complaining of abdominal pain to the left upper and lower quadrant for the last week. Patient stated that he is being also having nausea and vomiting and diarrhea. He denied any fever recently. Patient denied any urinary symptoms. MD Complaint: abdominal pain Location: LUQ, LLQ Radiation: none Migration to: no migration Severity: moderate Severity scale (0 -10): 6 Quality: sharp Associated Symptoms: nausea, vomiting, diarrhea - Related Data Home Medications Medication Instructions Recorded Confirmed Last Taken Levothyroxine [Synthroid] 50 mcg PO DAILY 06/14/15 06/21/15 Unknown Lisinopril 10 mg PO DAILY 06/14/15 06/21/15 Unknown Triamter/Hctz 37.5-25 mg 1 tab PO DAILY 06/14/15 06/21/15 Unknown Previous Rx's Medication Instructions Recorded Last Taken Type Folic Acid [Folvite] 1 mg PO QDAY #30 tablet 06/23/15 Unknown Rx Thiamine [Vitamin B-1] 100 mg PO QDAY #30 tablet 06/23/15 Unknown Rx HYDROcodone/APAP 5-325 [[place] 1 each PO Q6HR PRN #15 tablet 07/13/16 Unknown Rx 5/325] Ibuprofen [Motrin 600 MG tab] 600 mg PO Q8H PRN #30 tablet 07/13/16 Unknown Rx Ibuprofen [Motrin] 800 mg PO Q8HR PRN #15 tablet 10/05/16 Unknown Rx HYDROcodone/APAP 7.5-325 [[place] 1 each PO Q6HR PRN #10 tablet 09/24/17 Unknown Rx 7.5-325 mg TAB] HYDROcodone/APAP 7.5-325 [[place] 1 each PO Q8HR PRN #9 tablet 10/22/17 Unknown Rx 7.5-325 mg TAB] Tamsulosin [Flomax] 0.4 mg PO QDAY #10 cap 10/22/17 Unknown Rx Acetaminophen/Codeine [Tylenol 1 tab PO Q6H PRN #12 tab 01/27/18 Unknown Rx /Codeine # 3 tab] levETIRAcetam [Keppra TAB] 1,000 mg PO BID 30 Days #60 tablet 01/27/18 Unknown Rx Allergies Allergy/AdvReac Type Severity Reaction Status Date / Time aspirin AdvReac Bleeding Verified 09/23/17 18:23 NSAIDS (Non-Steroidal AdvReac Unknown Verified 01/18/18 14:15 Anti-Inflamma tramadol AdvReac Seizure Verified 09/23/17 18:23 ED Review of Systems ROS: Stated complaint: STOMACH PAIN Other details as noted in HPI Comment: All other systems reviewed and negative Constitutional: denies: chills, fever Respiratory: denies: cough, orthopnea, shortness of breath, SOB with exertion, SOB at rest Cardiovascular: denies: chest pain, palpitations, dyspnea on exertion Gastrointestinal: abdominal pain, nausea, vomiting, diarrhea. denies: constipation, hematemesis, melena, hematochezia Genitourinary: denies: urgency, dysuria, frequency, hematuria, discharge Neurological: denies: headache, weakness, numbness, paresthesias, confusion ED Past Medical Hx - Past Medical History Hx Hypertension: Yes Hx CVA: (TIA,CVA WITH LEFT-SIDED WEAKNESS) Hx Congestive Heart Failure: No Hx Diabetes: No Hx Liver Disease: Yes (CYST) Hx Seizures: Yes Hx Asthma: No Hx COPD: No Additional medical history: gout - Surgical History Additional Surgical History: spleen removal, hernia repair, ulcers. - Social History Smoking Status: Never Smoker Substance Use Type: None - Medications Home Medications: Home Medications Medication Instructions Recorded Confirmed Last Taken Type Levothyroxine [Synthroid] 50 mcg PO DAILY 06/14/15 06/21/15 Unknown History Lisinopril 10 mg PO DAILY 06/14/15 06/21/15 Unknown History Triamter/Hctz 37.5-25 mg 1 tab PO DAILY 06/14/15 06/21/15 Unknown History Folic Acid [Folvite] 1 mg PO QDAY #30 tablet 06/23/15 Unknown Rx Thiamine [Vitamin B-1] 100 mg PO QDAY #30 tablet 06/23/15 Unknown Rx HYDROcodone/APAP 5-325 [[place] 1 each PO Q6HR PRN #15 tablet 07/13/16 Unknown Rx 5/325] Ibuprofen [Motrin 600 MG tab] 600 mg PO Q8H PRN #30 tablet 07/13/16 Unknown Rx Ibuprofen [Motrin] 800 mg PO Q8HR PRN #15 tablet 10/05/16 Unknown Rx HYDROcodone/APAP 7.5-325 [[place] 1 each PO Q6HR PRN #10 tablet 09/24/17 Unknown Rx 7.5-325 mg TAB] HYDROcodone/APAP 7.5-325 [[place] 1 each PO Q8HR PRN #9 tablet 10/22/17 Unknown Rx 7.5-325 mg TAB] Tamsulosin [Flomax] 0.4 mg PO QDAY #10 cap 10/22/17 Unknown Rx Acetaminophen/Codeine [Tylenol 1 tab PO Q6H PRN #12 tab 01/27/18 Unknown Rx /Codeine # 3 tab] levETIRAcetam [Keppra TAB] 1,000 mg PO BID 30 Days #60 tablet 01/27/18 Unknown Rx ED Physical Exam - General Limitations: No Limitations General appearance: alert, in no apparent distress - Head Head exam: Present: atraumatic, normocephalic, normal inspection - Eye Eye exam: Present: normal appearance, PERRL - ENT ENT exam: Present: normal exam, normal orophraynx, mucous membranes moist - Neck Neck exam: Present: normal inspection, full ROM. Absent: tenderness, meningismus, lymphadenopathy, thyromegaly - Respiratory Respiratory exam: Present: normal lung sounds bilaterally - Cardiovascular Cardiovascular Exam: Present: regular rate, normal rhythm, normal heart sounds - GI/Abdominal GI/Abdominal exam: Present: soft, tenderness, normal bowel sounds. Absent: distended, guarding, rebound, rigid, organomegaly, mass, bruit, pulsatile mass, hernia - Extremities Exam Extremities exam: Present: normal inspection, full ROM, normal capillary refill - Back Exam Back exam: Present: normal inspection, full ROM. Absent: tenderness, CVA tenderness (R), CVA tenderness (L) - Neurological Exam Neurological exam: Present: alert, oriented X3, CN II-XII intact, normal gait ED Course Vital Signs 02/25/18 02/26/18 02/26/18 19:36 00:12 00:15 Temperature 97.7 F Pulse Rate 64 Respiratory 97 H Rate Blood Pressure 159/92 128/82 O2 Sat by Pulse 94 94 Oximetry 02/26/18 02/26/18 02/26/18 00:29 00:30 01:57 Temperature 98.1 F Pulse Rate Respiratory 18 Rate Blood Pressure 123/83 O2 Sat by Pulse Oximetry 02/26/18 02:32 Temperature Pulse Rate Respiratory 12 Rate Blood Pressure O2 Sat by Pulse 96 Oximetry - Reevaluation(s) Reevaluation #1: 02/26/18 02:56 Patient stated that he is feeling much better. No nausea no vomiting no abdominal pain. ED Medical Decision Making - Lab Data Result diagrams: 02/25/18 19:43 02/25/18 19:43 - Radiology Data Radiology results: report reviewed Referring Physician: KEVIN MORA Patient Name: ISIDRO RAMIREZ Date of : 1955 Sex: Male Report Date: 2018-02-26 Report Status: Finalized Findings [facility] [address] [place] [address] Cat Scan Report Signed Patient: ISIDRO RAMIREZ MR#: [id number] : 1955 Acct:[id number] Age/Sex: 62 / M ADM Date: 02/25/18 Loc: ED Attending Dr: Ordering Physician: KEVIN MORA Date of Service: 02/26/18 Procedure(s): CT abdomen pelvis w con Accession Number(s): [id number] cc: KEVIN MORA FINAL REPORT EXAM: CT ABDOMEN PELVIS W CON HISTORY: abdominal pain TECHNIQUE: Routine axial imaging was obtained of the abdomen and pelvis following the intravenous injection of 100 cc of Omnipaque 350. Delayed imaging was obtained through the kidneys ureters and bladder. Sagittal and coronal reconstructions were reviewed. Comparison is made to the previous study of 10/22/2017. FINDINGS: The lung bases do not show any infiltrates or effusions. The liver, gallbladder, pancreas, spleen, and adrenal glands appear normal. The kidneys enhance normally. There is no evidence of hydronephrosis or stones. The vascular structures enhance normally. There calcification of the abdominal aorta. The bowel loops are normal in caliber and course. There are few uncomplicated diverticula in the sigmoid and descending colon. The prostate gland is normal size and contains calcifications. The bladder appears normal. The appendix is not enlarged. The skeletal structures reveal multilevel disc degeneration in the lumbar spine IMPRESSION: No acute process in the abdomen and pelvis. Uncomplicated colonic diverticulosis. Transcribed By: RB Dictated By: MARIA GUADALUPE YOUNG MD Electronically Authenticated By: MARIA GUADALUPE YOUNG MD Signed Date/Time: 02/26/18220 DD/ 0 TD/TT: 02/26/18220 Critical care attestation.: If time is entered above; I have spent that time in minutes in the direct care of this critically ill patient, excluding procedure time. ED Disposition Clinical Impression: Abdominal pain Disposition: TO HOME OR SELFCARE Is pt being admited?: No Condition: Stable Instructions: Abdominal Pain (ED) Referrals: PRIMARY CARE, [Primary Care Provider] - 3-5 Days
[2018-02-26] MEDS ORDERED: SUBLIMAZE IV ONE (01:46)
--- NOTE | 2018-02-26 02:26 | Cat Scan Report ---
FINAL REPORT EXAM: CT ABDOMEN PELVIS W CON HISTORY: abdominal pain TECHNIQUE: Routine axial imaging was obtained of the abdomen and pelvis following the intravenous injection of 100 cc of Omnipaque 350. Delayed imaging was obtained through the kidneys ureters and bladder. Sagittal and coronal reconstructions were reviewed. Comparison is made to the previous study of 10/22/2017. FINDINGS: The lung bases do not show any infiltrates or effusions. The liver, gallbladder, pancreas, spleen, and adrenal glands appear normal. The kidneys enhance normally. There is no evidence of hydronephrosis or stones. The vascular structures enhance normally. There calcification of the abdominal aorta. The bowel loops are normal in caliber and course. There are few uncomplicated diverticula in the sigmoid and descending colon. The prostate gland is normal size and contains calcifications. The bladder appears normal. The appendix is not enlarged. The skeletal structures reveal multilevel disc degeneration in the lumbar spine IMPRESSION: No acute process in the abdomen and pelvis. Uncomplicated colonic diverticulosis.
[2018-02-26 03:17] VITALS: BP 120/80
== END 2018-02-26 03:17 | disposition home or self-care (01) ==
LOC: ED 19:15
DX: R10.2 Pelvic and perineal pain (principal); I10 Essential (primary) hypertension; R11.2 Nausea with vomiting, unspecified; R19.7 Diarrhea, unspecified; Z88.8 Allergy status to other drugs, medicaments and biological substances; Z88.6 Allergy status to analgesic agent; M10.9 Gout, unspecified; Z87.442 Personal history of urinary calculi
CPT/HCPCS: 36415; 74177; 80053; 81001; 83690; 85025; 96374; 96375; 96376; 99284; J2405; J3010; Q9967

== ENCOUNTER 2018-11-05 14:50 | Emergency (ER) | payer MEDICAID ==
[2018-11-05 15:06] VITALS: BP 170/109
--- NOTE | 2018-11-05 16:54 | Emergency Department Report ---
Blank Doc - Documentation Documentation: Patient presents to the emergency department with a chief complaint of left si ded pain that started 4 days ago. Patient describes the pain as throbbing in nature and states it starts at the top of his head and travels to his feet. Patient has a history of CVA 3 years ago as well as TIAs. Patient also has diabetes which he states he takes medications for. Patient has a history of left-sided weakness from prior CVA. Patient denies any muscle weakness, slurred speech, facial droop. Physical exam the patient does have some mild weakness on the left side which he states is chronic. Other than that the patient has a normal physical exam. Care of the patient will be transferred to the nurse practitioner with me available for consultation. Patient received CT of the head and of the laboratory studies
[2018-11-05 17:22] LABS: Basophils # (Auto) 0.1 K/mm3 (0.0-0.1); Eosinophils # (Auto) 0.1 K/mm3 (0.0-0.4); Eosinophils % (Auto) 1.4 % (0.0-4.3); Hematocrit 40.6 % (35.5-45.6); Hemoglobin 13.7 gm/dl (11.8-15.2); Lymphocytes # (Auto) 2.1 K/mm3 (1.2-5.4); Lymphocytes % (Auto) 28.5 % (13.4-35.0); Mean Corpuscular HGB Conc 34 % (32-34); Mean Corpuscular Volume 95 fl (84-94); Monocytes # (Auto) 0.4 K/mm3 (0.0-0.8); Monocytes % (Auto) 5.7 % (0.0-7.3); Platelet Count 290 K/mm3 (140-440); Red Blood Count 4.28 M/mm3 (3.65-5.03); Red Cell Distribution Width 14.3 % (13.2-15.2)
--- NOTE | 2018-11-05 17:33 | XRay Report ---
FINAL REPORT PROCEDURE: Chest. TECHNIQUE: PA and lateral views. HISTORY: Chest pain. COMPARISON: Chest 09/23/2017. FINDINGS: The heart size is normal. There is mild tortuosity of the thoracic aorta. The lungs are clear and wel l expanded. There are no pleural effusions. There are old fractures of right ribs 2 through 6. 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 IMPRESSION: No evidence of acute cardiopulmonary disease.
[2018-11-05 17:36] LABS: Alanine Aminotransferase 9 units/L (7-56); Albumin 4.5 g/dL (3.9-5); BUN/Creatinine Ratio 9; Blood Urea Nitrogen 7 mg/dL (9-20); Calcium 9.3 mg/dL (8.4-10.2); Hemolysis Index 10
--- NOTE | 2018-11-05 18:00 | Cat Scan Report ---
FINAL REPORT EXAM: CT HEAD/BRAIN WO CON HISTORY: headache TECHNIQUE: CT examination of the head without IV contrast PRIORS: 01/18/2018 FINDINGS: Nonspecific prominence of CSF density posterior to the cerebellum and vermis may reflect developmenta l variation of scarlet cisterna magna. Differential includes arachnoid cyst. It appears unchanged. No acute air-fluid level visualized in the included air-filled sinuses. Bone windows demonstrate no acute fracture. There is ventricular and sulcal prominence compatible with global cerebrocortical atrophy. The brain contains no mass, mass effect, hemorrhage, or acute infarct. There is no extra-axial intracranial bleed, brain bleed, or midline shift. IMPRESSION: No acute CVA, intracranial bleed, or brain mass
[2018-11-05] MEDS ORDERED: TYLENOL #3 PO ONE (18:08)
--- NOTE | 2018-11-05 18:19 | Emergency Department Report ---
ED General Adult HPI - General Chief complaint: Pain General Stated complaint: LFT SIDE PAIN Time Seen by Provider: 11/05/18 16:29 Source: patient Mode of arrival: Ambulatory Limitations: No Limitations - History of Present Illness Initial comments: This is a 62-year-old male that presents with left-sided pain. He reports pain as a throbbing sensation from his head to his toes on the left side. Past medical history history of CVA, diabetes, headaches, hypertension, gout, and seizures. Patient is also complaining of chronic muscle spasms to the left calf. He is requesting a refill of tizanidine which she usually received from primary care provider. He reports weakness on left side which is normal for him. He denies, chest pain, shortness of breath, slurred speech, facial droop, foot drop. Onset/Timin -: days(s) Location: upper extremity (left), lower extremity (left) Radiation: non-radiation Severity scale (0 -10): 8 Quality: other (throbbing) Consistency: intermittent Improves with: none Worsens with: none Associated Symptoms: headaches. denies: confusion, chest pain, cough, diaphoresis, fever/chills, loss of appetite, malaise, nausea/vomiting, rash, seizure, shortness of breath, syncope, weakness Treatments Prior to Arrival: NSAID - Related Data Home Medications Medication Instructions Recorded Confirmed Last Taken Levothyroxine [Synthroid] 50 mcg PO DAILY 06/14/15 06/21/15 Unknown Lisinopril 10 mg PO DAILY 06/14/15 06/21/15 Unknown Triamter/Hctz 37.5-25 mg 1 tab PO DAILY 06/14/15 06/21/15 Unknown Previous Rx's Medication Instructions Recorded Last Taken Type Folic Acid [Folvite] 1 mg PO QDAY #30 tablet 06/23/15 Unknown Rx Thiamine [Vitamin B-1] 100 mg PO QDAY #30 tablet 06/23/15 Unknown Rx HYDROcodone/APAP 5-325 [[place] 1 each PO Q6HR PRN #15 tablet 07/13/16 Unknown Rx 5/325] Ibuprofen [Motrin 600 MG tab] 600 mg PO Q8H PRN #30 tablet 07/13/16 Unknown Rx Ibuprofen [Motrin] 800 mg PO Q8HR PRN #15 tablet 10/05/16 Unknown Rx HYDROcodone/APAP 7.5-325 [[place] 1 each PO Q6HR PRN #10 tablet 09/24/17 Unknown Rx 7.5-325 mg TAB] HYDROcodone/APAP 7.5-325 [[place] 1 each PO Q8HR PRN #9 tablet 10/22/17 Unknown Rx 7.5-325 mg TAB] Tamsulosin [Flomax] 0.4 mg PO QDAY #10 cap 10/22/17 Unknown Rx Acetaminophen/Codeine [Tylenol 1 tab PO Q6H PRN #12 tab 01/27/18 Unknown Rx /Codeine # 3 tab] levETIRAcetam [Keppra TAB] 1,000 mg PO BID 30 Days #60 tablet 01/27/18 Unknown Rx Simethicone [Bicarsim] 80 mg PO Q6HR #60 tablet 02/26/18 Unknown Rx Allergies Allergy/AdvReac Type Severity Reaction Status Date / Time aspirin AdvReac Bleeding Verified 09/23/17 18:23 NSAIDS (Non-Steroidal AdvReac Unknown Verified 01/18/18 14:15 Anti-Inflamma tramadol AdvReac Seizure Verified 09/23/17 18:23 ED Review of Systems ROS: Stated complaint: LFT SIDE PAIN Other details as noted in HPI Constitutional: denies: chills, fever Respiratory: denies: cough, shortness of breath, wheezing Cardiovascular: denies: chest pain, palpitations Gastrointestinal: denies: abdominal pain, nausea, diarrhea Musculoskeletal: arthralgia (left sided pain) Neurological: denies: headache, weakness, paresthesias Psychiatric: denies: anxiety, depression ED Past Medical Hx - Past Medical History Previous Medical History?: Yes Hx Hypertension: Yes Hx CVA: Yes (TIA,CVA WITH LEFT-SIDED WEAKNESS) Hx Congestive Heart Failure: No Hx Diabetes: Yes Hx Liver Disease: Yes (CYST) Hx Headaches / Migraines: Yes Hx Seizures: Yes Hx Asthma: No Hx COPD: No Additional medical history: gout. bleeding ulcers - Surgical History Past Surgical History?: Yes Additional Surgical History: spleen removal, hernia repair, ulcers. - Social History Smoking Status: Former Smoker Substance Use Type: None - Medications Home Medications: Home Medications Medication Instructions Recorded Confirmed Last Taken Type Levothyroxine [Synthroid] 50 mcg PO DAILY 06/14/15 06/21/15 Unknown History Lisinopril 10 mg PO DAILY 06/14/15 06/21/15 Unknown History Triamter/Hctz 37.5-25 mg 1 tab PO DAILY 06/14/15 06/21/15 Unknown History Folic Acid [Folvite] 1 mg PO QDAY #30 tablet 06/23/15 Unknown Rx Thiamine [Vitamin B-1] 100 mg PO QDAY #30 tablet 06/23/15 Unknown Rx HYDROcodone/APAP 5-325 [[place] 1 each PO Q6HR PRN #15 tablet 07/13/16 Unknown Rx 5/325] Ibuprofen [Motrin 600 MG tab] 600 mg PO Q8H PRN #30 tablet 07/13/16 Unknown Rx Ibuprofen [Motrin] 800 mg PO Q8HR PRN #15 tablet 10/05/16 Unknown Rx HYDROcodone/APAP 7.5-325 [[place] 1 each PO Q6HR PRN #10 tablet 09/24/17 Unknown Rx 7.5-325 mg TAB] HYDROcodone/APAP 7.5-325 [[place] 1 each PO Q8HR PRN #9 tablet 10/22/17 Unknown Rx 7.5-325 mg TAB] Tamsulosin [Flomax] 0.4 mg PO QDAY #10 cap 10/22/17 Unknown Rx Acetaminophen/Codeine [Tylenol 1 tab PO Q6H PRN #12 tab 01/27/18 Unknown Rx /Codeine # 3 tab] levETIRAcetam [Keppra TAB] 1,000 mg PO BID 30 Days #60 tablet 01/27/18 Unknown Rx Simethicone [Bicarsim] 80 mg PO Q6HR #60 tablet 02/26/18 Unknown Rx ED Physical Exam - General Limitations: No Limitations General appearance: alert, in no apparent distress - Respiratory Respiratory exam: Present: normal lung sounds bilaterally. Absent: respiratory distress - Cardiovascular Cardiovascular Exam: Present: regular rate, normal rhythm. Absent: systolic murmur, diastolic murmur, rubs, gallop - GI/Abdominal GI/Abdominal exam: Present: soft, normal bowel sounds - Expanded Upper Extremity Exam Left Shoulder Exam: Present: normal inspection, full ROM Upper Arm exam: Present: normal inspection, full ROM Elbow exam: Present: normal inspection, full ROM Forearm Wrist exam: Present: normal inspection, full ROM Hand Wrist exam: Present: normal inspection, full ROM Neuro motor exam: Present: wrist extension intact, thumb opposition intact, thumb IP flexion intact, thumb adduction intact, fingers 2-5 abduction intact Neurosensory exam: Present: radial nerve intact, ulnar nerve intact, median ne rve intact Vascular: Present: normal capillary refill, radial pulse - Expanded Lower Extremity Exam Left Hip exam: Present: normal inspection, full ROM Upper Leg exam: Present: normal inspection, full ROM Knee exam: Present: normal inspection, full ROM Lower Leg exam: Present: normal inspection, full ROM Ankle exam: Present: normal inspection, full ROM Foot/Toe exam: Present: normal inspection, full ROM Neuro vascular tendon exam: Present: no vascular compromise Gait: Positive: observed and normal - Neurological Exam Neurological exam: Present: alert, oriented X3 - Psychiatric Psychiatric exam: Present: normal affect, normal mood - Skin Skin exam: Present: warm, dry, intact, normal color. Absent: rash ED Course Vital Signs 11/05/18 11/05/18 14:59 18:51 Temperature 98.4 F Pulse Rate 80 Respiratory 18 16 Rate Blood Pressure 170/109 O2 Sat by Pulse 96 Oximetry ED Medical Decision Making - Lab Data Result diagrams: 11/05/18 17:13 11/05/18 17:13 Lab Results 11/05/18 11/05/18 Range/Units 17:13 17:13 WBC 7.5 (4.5-11.0) K/mm3 RBC 4.28 (3.65-5.03) M/mm3 Hgb 13.7 (11.8-15.2) gm/dl Hct 40.6 (35.5-45.6) % MCV 95 H (84-94) fl MCH 32 (28-32) pg MCHC 34 (32-34) % RDW 14.3 (13.2-15.2) % Plt Count 290 (140-440) K/mm3 Lymph % (Auto) 28.5 (13.4-35.0) % [place] % (Auto) 5.7 (0.0-7.3) % Eos % (Auto) 1.4 (0.0-4.3) % Baso % (Auto) 1.0 (0.0-1.8) % Lymph # 2.1 (1.2-5.4) K/mm3 [place] # 0.4 (0.0-0.8) K/mm3 Eos # 0.1 (0.0-0.4) K/mm3 Baso # 0.1 (0.0-0.1) K/mm3 Seg Neutrophils % 63.4 (40.0-70.0) % Seg Neutrophils # 4.8 (1.8-7.7) K/mm3 Sodium 142 (137-145) mmol/L Potassium 3.8 (3.6-5.0) mmol/L Chloride 104.4 (98-107) mmol/L Carbon Dioxide 23 (22-30) mmol/L Anion Gap 18 mmol/L BUN 7 L (9-20) mg/dL Creatinine 0.8 (0.8-1.5) mg/dL Estimated GFR > 60 ml/min BUN/Creatinine Ratio 9 % Glucose 132 H (75-100) mg/dL Calcium 9.3 (8.4-10.2) mg/dL Total Bilirubin 0.80 (0.1-1.2) mg/dL AST 17 (5-40) units/L ALT 9 (7-56) units/L Alkaline Phosphatase 52 (35-129) units/L Troponin T < 0.010 (0.00-0.029) ng/mL NT-Pro-B Natriuret Pep 158.6 (0-900) pg/mL Total Protein 7.4 (6.3-8.2) g/dL Albumin 4.5 (3.9-5) g/dL Albumin/Globulin Ratio 1.6 % - Radiology Data Radiology results: report reviewed FINAL REPORT EXAM: CT HEAD/BRAIN WO CON HISTORY: headache TECHNIQUE: CT examination of the head without IV contrast PRIORS: 01/18/2018 FINDINGS: Nonspecific prominence of CSF density posterior to the cerebellum and vermis may reflect developmental variation of scarlet cisterna magna. Differential includes arachnoid cyst. It appears unchanged. No acute air-fluid level visualized in the included air-filled sinuses. Bone windows demonstrate no acute fracture. There is ventricular and sulcal prominence compatible with global cerebrocortical atrophy. The brain contains no mass, mass effect, hemorrhage, or acute infarct. There is no extra-axial intracranial bleed, brain bleed, or midline shift. IMPRESSION: No acute CVA, intracranial bleed, or brain mass PROCEDURE: Chest. TECHNIQUE: PA and lateral views. HISTORY: Chest pain. COMPARISON: Chest 09/23/2017. FINDINGS: The heart size is normal. There is mild tortuosity of the thoracic aorta. The lungs are clear and well expanded. There are no pleural effusions. There are old fractures of right ribs 2 through 6. 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 IMPRESSION: No evidence of acute cardiopulmonary disease. - Medical Decision Making Patient was examined by me. Blood pressure elevated and patient is in no acute distress. Obtained labs, chest x-ray, and CT of the head. All labs are unremarkable. All radiograph dictated by radiologist. No evidence of acute cardiopulmonary disease. No acute CVA, intracranial bleed, or brain mass. Patient informed of results. Continue take Tylenol for pain and follow-up with primary care provider. Plan discussed with patient to discharge home and treat outpatient. He agrees with ER plan. Patient discharged home in stable condition. Critical care attestation.: If time is entered above; I have spent that time in minutes in the direct care of this critically ill patient, excluding procedure time. ED Disposition Clinical Impression: Asymptomatic hypertension Shoulder pain, left Qualifiers: Chronicity: acute Qualified Code(s): M25.512 - Pain in left shoulder Left knee pain Qualifiers: Chronicity: acute Qualified Code(s): M25.562 - Pain in left knee Disposition: DC-01 TO HOME OR SELFCARE Is pt being admited?: No Does the pt Need Aspirin: No Condition: Stable Instructions: Hypertension (ED), Arthralgia (ED) Additional Instructions: Follow-up with her primary care provider. Referrals: [facility] [Outside] - 3-5 Days [facility] [Outside] - 3-5 Days Time of Disposition: 19:28
[2018-11-05 19:30] LABS: Bilirubin,Urine NEG (Negative); Blood,Urine MOD (Negative); Color,Urine Yellow (Yellow); Protein,Urine <15 mg/dL mg/dL (Negative); Urobilinogen,Urine < 2.0 mg/dL (<2.0); WBC,Urine < 1.0 /HPF (0.0-6.0)
[2018-11-05 19:38] LABS: Amphetamine Screen,Urine PRESUMPTIVE NEGATIVE; Benzodiazepines Screen,Urine PRESUMPTIVE NEGATIVE; Cannabinoid Screen,Urine PRESUMPTIVE NEGATIVE; Cocaine Screen,Urine PRESUMPTIVE NEGATIVE; Methadone Screen,Urine PRESUMPTIVE NEGATIVE; Opiate Screen,Urine PRESUMPTIVE NEGATIVE
== END 2018-11-05 19:50 | disposition home or self-care (01) ==
LOC: ED 14:50
DX: I10 Essential (primary) hypertension (principal); M25.512 Pain in left shoulder; M25.562 Pain in left knee; E11.9 Type 2 diabetes mellitus without complications; G43.909 Migraine, unspecified, not intractable, without status migrainosus; M19.90 Unspecified osteoarthritis, unspecified site; Z86.73 Personal history of transient ischemic attack (TIA), and cerebral infarction without residual deficits; Z87.891 Personal history of nicotine dependence; Z79.899 Other long term (current) drug therapy; Z88.6 Allergy status to analgesic agent; Z88.8 Allergy status to other drugs, medicaments and biological substances
CPT/HCPCS: 36415; 70450; 71046; 80053; 80307; 81001; 83880; 84484; 85025

== ENCOUNTER 2020-03-27 22:55 | Emergency (ER) | payer MEDICAID ==
[2020-03-27] MEDS ORDERED: MORPHINE 4 MG/1 ML INJ IV ONE (23:35)
--- NOTE | 2020-03-27 23:37 | Emergency Department Report ---
ED General Adult HPI - General Chief complaint: Fall Stated complaint: FELL OF ROOF TODAY Time Seen by Provider: 03/27/20 23:27 Source: patient Mode of arrival: Ambulatory Limitations: No Limitations - Related Data Home Medications Medication Instructions Recorded Confirmed Last Taken Levothyroxine [Synthroid] 50 mcg PO DAILY 06/14/15 06/21/15 Unknown Lisinopril 10 mg PO DAILY 06/14/15 06/21/15 Unknown Triamter/Hctz 37.5-25 mg 1 tab PO DAILY 06/14/15 06/21/15 Unknown Previous Rx's Medication Instructions Recorded Last Taken Type Folic Acid [Folvite] 1 mg PO QDAY #30 tablet 06/23/15 Unknown Rx Thiamine [Vitamin B-1] 100 mg PO QDAY #30 tablet 06/23/15 Unknown Rx HYDROcodone/APAP 5-325 [Alvin 1 each PO Q6HR PRN #15 tablet 07/13/16 Unknown Rx 5/325] Ibuprofen [Motrin 600 MG tab] 600 mg PO Q8H PRN #30 tablet 07/13/16 Unknown Rx Ibuprofen [Motrin] 800 mg PO Q8HR PRN #15 tablet 10/05/16 Unknown Rx HYDROcodone/APAP 7.5-325 [Alvin 1 each PO Q6HR PRN #10 tablet 09/24/17 Unknown Rx 7.5-325 mg TAB] HYDROcodone/APAP 7.5-325 [Alvin 1 each PO Q8HR PRN #9 tablet 10/22/17 Unknown Rx 7.5-325 mg TAB] Tamsulosin [Flomax] 0.4 mg PO QDAY #10 cap 10/22/17 Unknown Rx Acetaminophen/Codeine [Tylenol 1 tab PO Q6H PRN #12 tab 01/27/18 Unknown Rx /Codeine # 3 tab] levETIRAcetam [Keppra TAB] 1,000 mg PO BID 30 Days #60 tablet 01/27/18 Unknown Rx Simethicone [Bicarsim] 80 mg PO Q6HR #60 tablet 02/26/18 Unknown Rx Folic Acid [Folvite] 1 mg PO QDAY #30 tablet 02/07/19 Unknown Rx Multivitamin [One Daily 1 each PO QDAY #30 tablet 02/07/19 Unknown Rx Multivitamin] chlordiazePOXIDE [Librium] 25 mg PO Q6HR PRN #15 capsule 02/07/19 Unknown Rx Allergies Allergy/AdvReac Type Severity Reaction Status Date / Time aspirin AdvReac Bleeding Verified 02/07/19 00:16 NSAIDS (Non-Steroidal AdvReac Unknown Verified 02/07/19 00:16 Anti-Inflamma tramadol AdvReac Seizure Verified 02/07/19 00:16 ED Review of Systems ROS: Stated complaint: FELL OF ROOF TODAY Other details as noted in HPI ED Past Medical Hx - Past Medical History Previous Medical History?: Yes Hx Hypertension: Yes Hx CVA: Yes (TIA,CVA WITH LEFT-SIDED WEAKNESS) Hx Congestive Heart Failure: No Hx Diabetes: Yes Hx Liver Disease: Yes (CYST) Hx Headaches / Migraines: Yes Hx Seizures: Yes Hx Asthma: No Hx COPD: No Additional medical history: gout. bleeding ulcers - Surgical History Past Surgical History?: Yes Additional Surgical History: spleen removal, hernia repair, ulcers. - Social History Smoking Status: Never Smoker Substance Use Type: None - Medications Home Medications: Home Medications Medication Instructions Recorded Confirmed Last Taken Type Levothyroxine [Synthroid] 50 mcg PO DAILY 06/14/15 06/21/15 Unknown History Lisinopril 10 mg PO DAILY 06/14/15 06/21/15 Unknown History Triamter/Hctz 37.5-25 mg 1 tab PO DAILY 06/14/15 06/21/15 Unknown History Folic Acid [Folvite] 1 mg PO QDAY #30 tablet 06/23/15 Unknown Rx Thiamine [Vitamin B-1] 100 mg PO QDAY #30 tablet 06/23/15 Unknown Rx HYDROcodone/APAP 5-325 [Alvin 1 each PO Q6HR PRN #15 tablet 07/13/16 Unknown Rx 5/325] Ibuprofen [Motrin 600 MG tab] 600 mg PO Q8H PRN #30 tablet 07/13/16 Unknown Rx Ibuprofen [Motrin] 800 mg PO Q8HR PRN #15 tablet 10/05/16 Unknown Rx HYDROcodone/APAP 7.5-325 [Alvin 1 each PO Q6HR PRN #10 tablet 09/24/17 Unknown Rx 7.5-325 mg TAB] HYDROcodone/APAP 7.5-325 [Alvin 1 each PO Q8HR PRN #9 tablet 10/22/17 Unknown Rx 7.5-325 mg TAB] Tamsulosin [Flomax] 0.4 mg PO QDAY #10 cap 10/22/17 Unknown Rx Acetaminophen/Codeine [Tylenol 1 tab PO Q6H PRN #12 tab 01/27/18 Unknown Rx /Codeine # 3 tab] levETIRAcetam [Keppra TAB] 1,000 mg PO BID 30 Days #60 tablet 01/27/18 Unknown Rx Simethicone [Bicarsim] 80 mg PO Q6HR #60 tablet 02/26/18 Unknown Rx Folic Acid [Folvite] 1 mg PO QDAY #30 tablet 02/07/19 Unknown Rx Multivitamin [One Daily 1 each PO QDAY #30 tablet 02/07/19 Unknown Rx Multivitamin] chlordiazePOXIDE [Librium] 25 mg PO Q6HR PRN #15 capsule 02/07/19 Unknown Rx ED Physical Exam - General Limitations: No Limitations ED Course Vital Signs 03/27/20 23:17 Temperature 98.8 F Pulse Rate 85 Respiratory 18 Rate Blood Pressure 98/64 O2 Sat by Pulse 97 Oximetry Critical care attestation.: If time is entered above; I have spent that time in minutes in the direct care of this critically ill patient, excluding procedure time. ED Disposition Condition: Stable
[2020-03-27 23:50] LABS: Hematocrit 38.4 % (35.5-45.6); Hemoglobin 12.9 gm/dl (11.8-15.2); Mean Corpuscular HGB Conc 34 % (32-34); Mean Corpuscular Volume 89 fl (84-94); Platelet Count 301 K/mm3 (140-440); Red Cell Distribution Width 13.4 % (13.2-15.2)
[2020-03-27] MEDS ORDERED: SODIUM CHLORIDE 0.9% 1000 ML 1,000 ML IV ONE (23:52)
--- NOTE | 2020-03-27 23:53 | Emergency Department Report ---
ED Fall HPI - General Chief Complaint: Fall Stated Complaint: FELL OF ROOF TODAY Time Seen by Provider: 03/27/20 23:27 Source: patient, RN/MD, RN notes reviewed, old records reviewed Mode of arrival: Ambulatory Limitations: No Limitations - History of Present Illness Initial Comments: The patient is a 64-year-old gentleman, who presents to the ER after mechanical fall from a roof. Patient reports he was doing work on top of his roof, and he fell approximately 1 story, onto his buttocks, then back, then had. Prior to the fall, he indicates he was not having any pain or any issues. He fell at approximately 530 to 6:00 PM today. It is currently 11:50 PM. He took [id number] acetaminophen at home, with no improvement in symptoms. He states no alcohol consumption today. There is no extremity weakness and or numbness, chest pain, abdominal pain, shortness of breath, bladder or bowel retention or incontinence and there is no complaint of saddle anesthesia. There is no abdominal pain. There is diffuse spinal back pain. There is paraspinal/paracervical back pain. He states he came to the emergency room because his pain is getting worse. He indicates he is able to take morphine without difficulty. 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 denies: numbness, weakness, chest paint, shortness of breath, abdominal pain, hematuria, unable to walk, l ightheaded, vertigo, confusion - Related Data Home Medications Medication Instructions Recorded Confirmed Last Taken Levothyroxine [Synthroid] 50 mcg PO DAILY 06/14/15 06/21/15 Unknown Lisinopril 10 mg PO DAILY 06/14/15 06/21/15 Unknown Triamter/Hctz 37.5-25 mg 1 tab PO DAILY 06/14/15 06/21/15 Unknown Previous Rx's Medication Instructions Recorded Last Taken Type Folic Acid [Folvite] 1 mg PO QDAY #30 tablet 06/23/15 Unknown Rx Thiamine [Vitamin B-1] 100 mg PO QDAY #30 tablet 06/23/15 Unknown Rx HYDROcodone/APAP 5-325 [[place] 1 each PO Q6HR PRN #15 tablet 07/13/16 Unknown Rx 5/325] Ibuprofen [Motrin 600 MG tab] 600 mg PO Q8H PRN #30 tablet 07/13/16 Unknown Rx Ibuprofen [Motrin] 800 mg PO Q8HR PRN #15 tablet 10/05/16 Unknown Rx HYDROcodone/APAP 7.5-325 [[place] 1 each PO Q6HR PRN #10 tablet 09/24/17 Unknown Rx 7.5-325 mg TAB] HYDROcodone/APAP 7.5-325 [[place] 1 each PO Q8HR PRN #9 tablet 10/22/17 Unknown Rx 7.5-325 mg TAB] Tamsulosin [Flomax] 0.4 mg PO QDAY #10 cap 10/22/17 Unknown Rx Acetaminophen/Codeine [Tylenol 1 tab PO Q6H PRN #12 tab 01/27/18 Unknown Rx /Codeine # 3 tab] levETIRAcetam [Keppra TAB] 1,000 mg PO BID 30 Days #60 tablet 01/27/18 Unknown Rx Simethicone [Bicarsim] 80 mg PO Q6HR #60 tablet 02/26/18 Unknown Rx Folic Acid [Folvite] 1 mg PO QDAY #30 tablet 02/07/19 Unknown Rx Multivitamin [One Daily 1 each PO QDAY #30 tablet 02/07/19 Unknown Rx Multivitamin] chlordiazePOXIDE [Librium] 25 mg PO Q6HR PRN #15 capsule 02/07/19 Unknown Rx Acetaminophen [Non-Aspirin Extra 500 mg PO Q6HR PRN #30 tablet 03/28/20 Unknown Rx Strength] oxyCODONE [Roxicodone] 5 mg PO Q6HR PRN #15 tablet 03/28/20 Unknown Rx Allergies Allergy/AdvReac Type Severity Reaction Status Date / Time aspirin AdvReac Bleeding Verified 02/07/19 00:16 NSAIDS (Non-Steroidal AdvReac Unknown Verified 02/07/19 00:16 Anti-Inflamma tramadol AdvReac Seizure Verified 02/07/19 00:16 ED Review of Systems ROS: Stated complaint: FELL OF ROOF TODAY Other details as noted in HPI Constitutional: denies: fever Eyes: denies: eye discharge ENT: denies: congestion Respiratory: denies: cough Cardiovascular: denies: chest pain Gastrointestinal: denies: abdominal pain Genitourinary: denies: dysuria Musculoskeletal: back pain, arthralgia, myalgia Skin: denies: lesions Neurological: denies: weakness, numbness, paresthesias ED Past Medical Hx - Past Medical History Previous Medical History?: Yes Hx Hypertension: Yes Hx CVA: Yes (TIA,CVA WITH LEFT-SIDED WEAKNESS) Hx Congestive Heart Failure: No Hx Diabetes: Yes Hx Liver Disease: Yes (CYST) Hx Headaches / Migraines: Yes Hx Seizures: Yes Hx Asthma: No Hx COPD: No Additional medical history: gout. bleeding ulcers - Surgical History Past Surgical History?: Yes Additional Surgical History: spleen removal, hernia repair, ulcers. - Social History Smoking Status: Never Smoker Substance Use Type: None - Medications Home Medications: Home Medications Medication Instructions Recorded Confirmed Last Taken Type Levothyroxine [Synthroid] 50 mcg PO DAILY 06/14/15 06/21/15 Unknown History Lisinopril 10 mg PO DAILY 06/14/15 06/21/15 Unknown History Triamter/Hctz 37.5-25 mg 1 tab PO DAILY 06/14/15 06/21/15 Unknown History Folic Acid [Folvite] 1 mg PO QDAY #30 tablet 06/23/15 Unknown Rx Thiamine [Vitamin B-1] 100 mg PO QDAY #30 tablet 06/23/15 Unknown Rx HYDROcodone/APAP 5-325 [[place] 1 each PO Q6HR PRN #15 tablet 07/13/16 Unknown Rx 5/325] Ibuprofen [Motrin 600 MG tab] 600 mg PO Q8H PRN #30 tablet 07/13/16 Unknown Rx Ibuprofen [Motrin] 800 mg PO Q8HR PRN #15 tablet 10/05/16 Unknown Rx HYDROcodone/APAP 7.5-325 [[place] 1 each PO Q6HR PRN #10 tablet 09/24/17 Unknown Rx 7.5-325 mg TAB] HYDROcodone/APAP 7.5-325 [[place] 1 each PO Q8HR PRN #9 tablet 10/22/17 Unknown Rx 7.5-325 mg TAB] Tamsulosin [Flomax] 0.4 mg PO QDAY #10 cap 10/22/17 Unknown Rx Acetaminophen/Codeine [Tylenol 1 tab PO Q6H PRN #12 tab 01/27/18 Unknown Rx /Codeine # 3 tab] levETIRAcetam [Keppra TAB] 1,000 mg PO BID 30 Days #60 tablet 01/27/18 Unknown Rx Simethicone [Bicarsim] 80 mg PO Q6HR #60 tablet 02/26/18 Unknown Rx Folic Acid [Folvite] 1 mg PO QDAY #30 tablet 02/07/19 Unknown Rx Multivitamin [One Daily 1 each PO QDAY #30 tablet 02/07/19 Unknown Rx Multivitamin] chlordiazePOXIDE [Librium] 25 mg PO Q6HR PRN #15 capsule 02/07/19 Unknown Rx Acetaminophen [Non-Aspirin Extra 500 mg PO Q6HR PRN #30 tablet 03/28/20 Unknown Rx Strength] oxyCODONE [Roxicodone] 5 mg PO Q6HR PRN #15 tablet 03/28/20 Unknown Rx ED Physical Exam - General Limitations: No Limitations General appearance: alert, in no apparent distress - Head Head exam: Present: atraumatic, normocephalic - Eye Eye exam: Present: normal appearance, EOMI. Absent: nystagmus - ENT ENT exam: Present: normal exam, normal orophraynx, mucous membranes moist, normal external ear exam - Neck Neck exam: Present: normal inspection, full ROM, other (Paracervical tenderness) - Respiratory Respiratory exam: Present: normal lung sounds bilaterally. Absent: respiratory distress - Cardiovascular Cardiovascular Exam: Present: regular rate, normal rhythm, normal heart sounds. Absent: bradycardia, tachycardia, irregular rhythm, systolic murmur, diastolic murmur, rubs, gallop - GI/Abdominal GI/Abdominal exam: Present: soft, normal bowel sounds. Absent: distended, tenderness, guarding, rebound, rigid, pulsatile mass - Rectal Rectal exam: Present: deferred - Extremities Exam Extremities exam: Present: normal inspection, full ROM, other (2+ pulses noted in the bilateral upper and lower extremities. There is no palpable cord. n egative Homans sign. Muscular compartments are soft. The pelvis is stable.). Absent: pedal edema, calf tenderness - Back Exam Back exam: Present: normal inspection, tenderness, paraspinal tenderness, vertebral tenderness. Absent: CVA tenderness (R), CVA tenderness (L) - Neurological Exam Neurological exam: Present: alert, oriented X3, other (No facial droop. Tongue midline. Extraocular movements intact bilaterally. Facial sensation intact to light touch in V1, V2, V3 distribution bilaterally. 5 and a 5 strength in 4 extremities. Sensation intact to light touch in 4 extremities.). Absent: motor sensory deficit - Psychiatric Psychiatric exam: Present: normal affect, normal mood - Skin Skin exam: Present: warm, dry, intact, normal color. Absent: rash ED Course Vital Signs 03/27/20 03/28/20 03/28/20 23:17 00:45 00:46 Temperature 98.8 F Pulse Rate 85 75 75 Respiratory 18 18 18 Rate Blood Pressure 98/64 Blood Pressure 149/85 [Left] O2 Sat by Pulse 97 98 98 Oximetry - Reevaluation(s) Reevaluation #1: 03/27/20 23:52 Differential diagnosis, including but not limited to: Sprain, strain, fracture, dislocation, mechanical fall Assessment and plan: 64-year-old gentleman with significant mechanism of injury, fall from 1 story, landed on bilateral buttocks, then hit back and head. GCS 15. No focal neurologic deficits. I find this mechanism of injury to be moderate risk by Georgian C-spine rule. Therefore, we will obtain CT scan brain, cervical spine, thoracic spine, lumbar spine, x-ray the chest, x-ray of the pelvis, urinalysis, laboratory studies to exclude rhabdomyolysis. Patient states he can tolerate morphine. IV fluids ordered. There is no abdominal tenderness, rebound or guarding, and there is no pulsatile abdominal mass Reevaluation #2: 03/28/20 01:20 CT scan of the brain is negative. CT scan spines negative for acute disease. X-ray is unremarkable. Screening laboratory studies unremarkable. Cervical collar is now cleared and discontinued. Remains clinically sober. Counseled to expect to be sore over the next few days. ED Medical Decision Making - Lab Data Result diagrams: 03/27/20 23:39 03/27/20 23:39 Vital Signs 03/27/20 23:17 Temperature 98.8 F Pulse Rate 85 Respiratory 18 Rate Blood Pressure 98/64 O2 Sat by Pulse 97 Oximetry Vital Signs 03/27/20 03/28/20 03/28/20 23:17 00:45 00:46 Temperature 98.8 F Pulse Rate 85 75 75 Respiratory 18 18 18 Rate Blood Pressure 98/64 Blood Pressure 149/85 [Left] O2 Sat by Pulse 97 98 98 Oximetry Lab Results 03/27/20 03/27/20 03/28/20 Range/Units 23:39 23:39 Unknown WBC 9.5 (4.5-11.0) K/mm3 RBC 4.30 (3.65-5.03) M/mm3 Hgb 12.9 (11.8-15.2) gm/dl Hct 38.4 (35.5-45.6) % MCV 89 (84-94) fl MCH 30 (28-32) pg MCHC 34 (32-34) % RDW 13.4 (13.2-15.2) % Plt Count 301 (140-440) K/mm3 Sodium 139 (137-145) mmol/L Potassium 4.6 (3.6-5.0) mmol/L Chloride 102.2 (98-107) mmol/L Carbon Dioxide 22 (22-30) mmol/L Anion Gap 19 mmol/L BUN 13 (9-20) mg/dL Creatinine 1.1 (0.8-1.5) mg/dL Estimated GFR > 60 ml/min BUN/Creatinine Ratio 12 % Glucose 92 (75-100) mg/dL Calcium 9.1 (8.4-10.2) mg/dL Total Creatine Kinase 57 (55-170) units/L Urine Color Yellow (Yellow) Urine Turbidity Clear (Clear) Urine pH 5.0 (5.0-7.0) Ur Specific [place] 1.017 (1.003-1.030) Urine Protein <15 mg/dl (Negative) mg/dL Urine Glucose (UA) Neg (Negative) mg/dL Urine Ketones Neg (Negative) mg/dL Urine Blood Neg (Negative) Urine Nitrite Neg (Negative) Urine Bilirubin Neg (Negative) Urine Urobilinogen 2.0 (<2.0) mg/dL Ur Leukocyte Esterase Neg (Negative) Urine WBC (Auto) < 1.0 (0.0-6.0) /HPF Urine RBC (Auto) 2.0 (0.0-6.0) /HPF Urine Bacteria (Auto) 1+ (Negative) /HPF Urine Mucus Few /HPF Plasma/Serum Alcohol (0-0.07) % 03/28/20 Range/Units Unknown WBC (4.5-11.0) K/mm3 RBC (3.65-5.03) M/mm3 Hgb (11.8-15.2) gm/dl Hct (35.5-45.6) % MCV (84-94) fl MCH (28-32) pg MCHC (32-34) % RDW (13.2-15.2) % Plt Count (140-440) K/mm3 Sodium (137-145) mmol/L Potassium (3.6-5.0) mmol/L Chloride (98-107) mmol/L Carbon Dioxide (22-30) mmol/L Anion Gap mmol/L BUN (9-20) mg/dL Creatinine (0.8-1.5) mg/dL Estimated GFR ml/min BUN/Creatinine Ratio % Glucose (75-100) mg/dL Calcium (8.4-10.2) mg/dL Total Creatine Kinase (55-170) units/L Urine Color (Yellow) Urine Turbidity (Clear) Urine pH (5.0-7.0) Ur Specific [place] (1.003-1.030) Urine Protein (Negative) mg/dL Urine Glucose (UA) (Negative) mg/dL Urine Ketones (Negative) mg/dL Urine Blood (Negative) Urine Nitrite (Negative) Urine Bilirubin (Negative) Urine Urobilinogen (<2.0) mg/dL Ur Leukocyte Esterase (Negative) Urine WBC (Auto) (0.0-6.0) /HPF Urine RBC (Auto) (0.0-6.0) /HPF Urine Bacteria (Auto) (Negative) /HPF Urine Mucus /HPF Plasma/Serum Alcohol < 0.01 (0-0.07) % - Radiology Data Radiology results: pending, report reviewed, image reviewed Print Report Referring Physician: PHILIP MONTES Patient Name: ISIDRO RAMIREZ Date of : 1955 Sex: Male Report Date: 2020-03-28 Report Status: Finalized Findings [facility] [address] [place] [address] Cat Scan Report Signed Patient: ISIDRO RAMIREZ MR#: [id number] : 1955 Acct:[id number] Age/Sex: 64 / M ADM Date: 03/27/20 Loc: ED Attending Dr: Ordering Physician: PHILIP MONTES MD Date of Service: 03/27/20 Procedure(s): CT thoracic spine wo con Accession Number(s): [id number] cc: PHILIP MONTES MD CT thoracic spine without contrast INDICATION: Trauma. Back pain following trauma TECHNIQUE: Axial imaging performed through the thoracic spine without the use of contrast. Sagittal and coronal reconstructed images were also reviewed. All CT scans at this location are performed using CT dose reduction for ALARA by means of automated exposure control. COMPARISON: None FINDINGS: Alignment: Spinal alignment is normal. Bones: There is no acute osseous abnormality. Mild multilevel discogenic DJD is present. Soft tissues: No acute or significant incidental soft tissue ab normality. IMPRESSION: No acute abnormality. Signer Name: Juliano Hill MD Signed: 03/28/2020 12:17 AM Workstation Name: [id number] Transcribed By: BC Dictated By: Juliano Hill MD Electronically Authenticated By: Juliano Hill MD Signed Date/Time: 03/28/2016 DD/ TD/TT: Report Referring Physician: PHILIP MONTES Patient Name: ISIDRO RAMIREZ Date of : 1955 Sex: Male Report Date: 2020-03-28 Report Status: Finalized Findings [address] [address] XRay Report Signed Patient: ISIDRO RAMIREZ MR#: [id number] : 1955 Acct:[id number] Age/Sex: 64 / M ADM Date: 03/27/20 Loc: ED Attending Dr: Ordering Physician: PHILIP MONTES MD Date of Service: 03/27/20 Procedure(s): XR chest 1V ap Accession Number(s): [id number] cc: PHILIP MONTES MD Fluoro Time In Minutes: CHEST 1 VIEW INDICATION / CLINICAL INFORMATION: Trauma. COMPARISON: None available. FINDINGS: SUPPORT DEVICES: None. HEART / MEDIASTINUM: No significant abnormality. LUNGS / PLEURA: No significant pulmonary or pleural abnormality. No pneumothorax. ADDITIONAL FINDINGS: Severe degenerative changes of the right shoulder. IMPRESSION: 1. No acute findings. Signer Name: Juliano Hill MD Signed: 03/28/2020 12:31 AM Workstation Name: [id number] Transcribed By: ROSARIO Dictated By: Juliano Hill MD Electronically Authenticated By: Juliano Hill MD Signed Date/Time: 03/28/2030 DD/ Print Report Referring Physician: PHILIP MONTES Patient Name: ISIDRO RAMIREZ Date of : 1955 Sex: Male Report Date: 2020-03-28 Report Status: Finalized Findings [facility] [address] [place] [address] Cat Scan Report Signed Patient: ISIDRO RAMIREZ MR#: [id number] : 1955 Acct:[id number] Age/Sex: 64 / M ADM Date: 03/27/20 Loc: ED Attending Dr: Ordering Physician: PHILIP MONTES MD Date of Service: 03/27/20 Procedure(s): CT cervical spine wo con Accession Number(s): [id number] cc: PHILIP MONTES MD CT cervical spine without contrast INDICATION: Trauma. Neck pain following injury TECHNIQUE: Axial imaging performed through the cervical spine without the use of contrast. Sagittal and coronal reconstructed images were also reviewed. All CT scans at this location are performed using CT dose reduction for ALARA by means of automated exposure control. COMPARISON: None FINDINGS: Alignment: Spinal alignment is normal. Bones: There is no acute osseous abnormality. Mild multilevel discogenic DJD is present. Degenerative changes cause mild left-sided neural foraminal narrowing at C3-C4, C4-C5 and C5-C6 secondary to uncovertebral discogenic degenerative changes. There is also moderate right-sided neural foraminal stenosis at C6-C7. Soft tissues: No acute or significant incidental soft tissue abnormality. IMPRESSION: No acute fracture or subluxation is identified. Multilevel degenerative changes with neural foraminal narrowing, as described above, chronic. Signer Name: Juliano Hill MD Signed: 03/28/2020 12:16 AM Workstation N freddie: [id number] Transcribed By: ROSARIO Dictated By: Juliano Hill MD Electronically Authenticated By: Juliano Hill MD Signed Date/Time: 03/28/2015 DD/ Print Report Referring Physician: PHILIP MONTES Patient Name: ISIDRO RAMIREZ Date of : 1955 Sex: Male Report Date: 2020-03-28 Report Status: Finalized Findings [facility] [address] [place] [address] XRay Report Signed Patient: ISIDRO RAMIREZ MR#: [id number] : 1955 Acct:[id number] Age/Sex: 64 / M ADM Date: 03/27/20 Loc: ED Attending Dr: Ordering Physician: PHILIP MONTES MD Date of Service: 03/27/20 Procedure(s): XR pelvis 1-2V Accession Number(s): [id number] cc: PHILIP MONTES MD Fluoro Time In Minutes: Pelvis single view INDICATION: Pelvic pain following injury IMPRESSION: No displaced fracture or subluxation appreciated. Signer Name: Juliano Hill MD Signed: 03/28/2020 12:31 AM Workstation Name: [place] Transcribed By: BC Dictated By: Juliano Hill MD Electronically Authenticated By: Juliano Hill MD Signed Date/Time: 03/28/[address] lumbar spine without contrast INDICATION: Low back pain following injury. TECHNIQUE: Axial imaging performed through the lumbar spine without the use of contrast. Sagittal and coronal reconstructed images were also reviewed. All CT scans at this location are performed using CT dose reduction for ALARA by means of automated exposure control. COMPARISON: None FINDINGS: Alignment: Spinal ali gnment is normal. Bones: There is no acute osseous abnormality. Mild multilevel discogenic DJD is present. Degenerative changes are most significant at L5-S1 with there is moderate bilateral neural foraminal stenosis. Soft tissues: No acute or significant incidental soft tissue abnormality. IMPRESSION: No acute abnormality. Signer Name: Juliano Hill MD Signed: 03/28/2020 12:32 AM Workstation Name: [place] ct head negative Critical care attestation.: If time is entered above; I have spent that time in minutes in the direct care of this critically ill patient, excluding procedure time. ED Disposition Clinical Impression: Back pain, Closed head injury, Fall Disposition: DC- TO HOME OR SELFCARE Is pt being admited?: No Does the pt Need Aspirin: No Condition: Stable Additional Instructions: Pain typically gets worse before it gets better after mechanical fall. Take the pain medications as needed and directed. If taking the oxycodone for pain, do not drive, consume alcohol, or make important decisions. Please follow-up with your primary care doctor within the next 5 to 7 days. Patient may also benefit from complementary therapy, such as massage, acupuncture, ice packs and heat packs. Participate in physical activities as tolerated. Please exercise caution when performing work on the house and on the roof. Please return to the emergency room right away with new pain, worsening pain, migration of pain, weakness, numbness, projectile vomiting, change in mental s tatus, confusion, inability to tolerate liquid feeds, new, worsened or different symptoms not present on the initial emergency room evaluation peer Referrals: TOMAS CARRILLO MD [Primary Care Provider] - 3-5 Days
[2020-03-28 00:03] LABS: BUN/Creatinine Ratio 12; Blood Urea Nitrogen 13 mg/dL (9-20); Calcium 9.1 mg/dL (8.4-10.2); Hemolysis Index 40
--- NOTE | 2020-03-28 00:20 | Cat Scan Report ---
CT cervical spine without contrast INDICATION: Trauma. Neck pain following injury TECHNIQUE: Axial imaging performed through the cervical spine without the use of contrast. Sagittal and coronal reconstructed images were also reviewed. All CT scans at this location are performed us ing CT dose reduction for ALARA by means of automated exposure control. COMPARISON: None FINDINGS: Alignment: Spinal alignment is normal. Bones: There is no acute osseous abnormality. Mild multilevel discogenic DJD is present. Degenerat cheryl changes cause mild left-sided neural foraminal narrowing at C3-C4, C4-C5 and C5-C6 secondary to u ncovertebral discogenic degenerative changes. There is also moderate right-sided neural foraminal nanette nosis at C6-C7. Soft tissues: No acute or significant incidental soft tissue abnormality. IMPRESSION: No acute fracture or subluxation is identified. Multilevel degenerative changes with payton ral foraminal narrowing, as described above, chronic. Signer Name: Juliano Hill MD Signed: 03/28/2020 12:16 AM Workstation Name: [id number]
--- NOTE | 2020-03-28 00:22 | Cat Scan Report ---
CT thoracic spine without contrast INDICATION: Trauma. Back pain following trauma TECHNIQUE: Axial imaging performed through the thoracic spine without the use of contrast. Sagittal and coronal reconstructed images were also reviewed. All CT scans at this location are performed us ing CT dose reduction for ALARA by means of automated exposure control. COMPARISON: None FINDINGS: Alignment: Spinal alignment is normal. Bones: There is no acute osseous abnormality. Mild multilevel discogenic DJD is present. Soft tissues: No acute or significant incidental soft tissue abnormality. IMPRESSION: No acute abnormality. Signer Name: Juliano Hill MD Signed: 03/28/2020 12:17 AM Workstation Name: [id number]
--- NOTE | 2020-03-28 00:35 | XRay Report ---
Pelvis single view INDICATION: Pelvic pain following injury IMPRESSION: No displaced fracture or subluxation appreciated. Signer Name: Juliano Hill MD Signed: 03/28/2020 12:31 AM Workstation Name: [email or web address]
--- NOTE | 2020-03-28 00:35 | XRay Report ---
CHEST 1 VIEW INDICATION / CLINICAL INFORMATION: Trauma. COMPARISON: None available. FINDINGS: SUPPORT DEVICES: None. HEART / MEDIASTINUM: No significant abnormality. LUNGS / PLEURA: No significant pulmonary or pleural abnormality. No pneumothorax. ADDITIONAL FINDINGS: Severe degenerative changes of the right shoulder. IMPRESSION: 1. No acute findings. Signer Name: Juliano Hill MD Signed: 03/28/2020 12:31 AM Workstation Name: [id number] [email or web address]
--- NOTE | 2020-03-28 00:37 | Cat Scan Report ---
CT lumbar spine without contrast INDICATION: Low back pain following injury. TECHNIQUE: Axial imaging performed through the lumbar spine without the use of contrast. Sagittal a nd coronal reconstructed images were also reviewed. All CT scans at this location are performed usin g CT dose reduction for ALARA by means of automated exposure control. COMPARISON: None FINDINGS: Alignment: Spinal alignment is normal. Bones: There is no acute osseous abnormality. Mild multilevel discogenic DJD is present. Degenerat cheryl changes are most significant at L5-S1 with there is moderate bilateral neural foraminal stenosis. Soft tissues: No acute or significant incidental soft tissue abnormality. IMPRESSION: No acute abnormality. Signer Name: Juliano Hill MD Signed: 03/28/2020 12:32 AM Workstation Name: [id number]
[2020-03-28 01:15] LABS: Bacteria,Urine 1+ /HPF (Negative); Bilirubin,Urine NEG (Negative); Blood,Urine NEG (Negative); Color,Urine Yellow (Yellow); Mucus,Urine FEW /HPF; Protein,Urine <15 mg/dL mg/dL (Negative); WBC,Urine < 1.0 /HPF (0.0-6.0)
[2020-03-28 01:23] VITALS: BP 142/89
[2020-03-28 02:33] LABS: Anisocytosis 1+; Band Neutrophils # (Manual) 0.1 K/mm3; Basophils % (Manual) 0 % (0.0-1.8); Platelet Estimate Consistent w Auto; Total Cells Counted 100
--- NOTE | 2020-04-01 12:01 | Cat Scan Report ---
CT head without contrast INDICATION : Headache following injury TECHNIQUE: Axial imaging performed from the skull apex through the skull base without the use of con trast. All CT examinations performed at this facility utilize dose modulation, iterative reconstruct ion or weight-based dosing, when appropriate, to reduce radiation dose to as low as reasonably achiev able. COMPARISON: None FINDINGS: No acute intracranial hemorrhage or parenchymal abnormality. There is extra-axial collecti on within the posterior cranial fossa posterior to the vermis and left cerebellar hemisphere that is similar in appearance to 02/07/2019, possibly representing a arachnoid cyst.. Ventricles are normal in size and appear symmetric. Soft tissues including the orbits appear normal. No acute osseous abn ormality. Sinuses and mastoid air cells are clear. IMPRESSION: No acute abnormality or significant change from 02/07/2019. Signer Name: Juliano Hill MD Signed: 03/28/2020 12:35 AM Workstation Name: [id number]
== END 2020-03-28 01:36 | disposition home or self-care (01) ==
LOC: ED 22:55
DX: S09.90XA Unspecified injury of head, initial encounter (principal); M54.9 Dorsalgia, unspecified; I10 Essential (primary) hypertension; E11.9 Type 2 diabetes mellitus without complications; G43.909 Migraine, unspecified, not intractable, without status migrainosus; M10.9 Gout, unspecified; Z88.6 Allergy status to analgesic agent; Z88.8 Allergy status to other drugs, medicaments and biological substances; Z86.73 Personal history of transient ischemic attack (TIA), and cerebral infarction without residual deficits; Z86.69 Personal history of other diseases of the nervous system and sense organs; Z98.890 Other specified postprocedural states; Z79.899 Other long term (current) drug therapy; W13.2XXA Fall from, out of or through roof, initial encounter; Y93.89 Activity, other specified; Y92.009 Unspecified place in unspecified non-institutional (private) residence as the place of occurrence of the external cause; Y99.8 Other external cause status
CPT/HCPCS: 36415; 70450; 71045; 72125; 72128; 72131; 72170; 80048; 81001; 82550; 85007; 85025; 96374; 99285; J2270; J7030; 80320; G0480

== ENCOUNTER 2022-03-04 17:22 | Emergency (ER) | payer MEDICARE ==
[2022-03-04 17:59] VITALS: BP 98/68
[2022-03-04 18:39] LABS: Basophils # (Auto) 0.1 K/mm3 (0.0-0.1); Basophils % (Auto) 0.8 % (0.0-1.8); Eosinophils # (Auto) 0.3 K/mm3 (0.0-0.4); Eosinophils % (Auto) 3.2 % (0.0-4.3); Hemoglobin 12.4 gm/dl (11.8-15.2); Lymphocytes # (Auto) 2.6 K/mm3 (1.2-5.4); Lymphocytes % (Auto) 30.4 % (13.4-35.0); Mean Corpuscular HGB Conc 35 % (32-34); Mean Corpuscular Volume 90 fl (84-94); Monocytes # (Auto) 0.9 K/mm3 (0.0-0.8); Monocytes % (Auto) 10.4 % (0.0-7.3); Platelet Count 238 K/mm3 (140-440); Red Blood Count 3.98 M/mm3 (3.65-5.03); Red Cell Distribution Width 14.1 % (13.2-15.2)
[2022-03-04 19:02] LABS: Bilirubin,Urine NEG (Negative); Blood,Urine NEG (Negative); Color,Urine Amber (Yellow); Mucus,Urine FEW /HPF; Sperm,Urine 1+ /HPF (NP)
[2022-03-04 19:05] LABS: Alanine Aminotransferase 22 units/L (7-56); Albumin 4.2 g/dL (3.9-5); BUN/Creatinine Ratio 7; Blood Urea Nitrogen 8 mg/dL (9-20); Calcium 8.4 mg/dL (8.4-10.2); Hemolysis Index 6
== END 2022-03-05 07:00 | disposition left against medical advice (07) ==
LOC: ED 17:22
DX: R52 Pain, unspecified (principal); Z53.21 Procedure and treatment not carried out due to patient leaving prior to being seen by health care provider
CPT/HCPCS: 36415; 80053; 81001; 85025

== ENCOUNTER 2022-05-09 19:38 | Emergency (ER) | payer MEDICARE ==
[2022-05-09 21:11] VITALS: BP 108/88
== END 2022-05-10 05:05 | disposition left against medical advice (07) ==
LOC: ED 19:38
DX: R10.9 Unspecified abdominal pain (principal); Z53.21 Procedure and treatment not carried out due to patient leaving prior to being seen by health care provider

== ENCOUNTER 2022-05-11 02:17 | Emergency (ER) | payer MEDICARE ==
[2022-05-11 06:44] LABS: Basophils # (Auto) 0.1 K/mm3 (0.0-0.1); Basophils % (Auto) 1.1 % (0.0-1.8); Eosinophils # (Auto) 0.3 K/mm3 (0.0-0.4); Eosinophils % (Auto) 2.7 % (0.0-4.3); Hematocrit 37.2 % (35.5-45.6); Hemoglobin 12.5 gm/dl (11.8-15.2); Lymphocytes # (Auto) 3.5 K/mm3 (1.2-5.4); Lymphocytes % (Auto) 34.9 % (13.4-35.0); Mean Corpuscular HGB Conc 34 % (32-34); Mean Corpuscular Volume 90 fl (84-94); Monocytes # (Auto) 1.2 K/mm3 (0.0-0.8); Monocytes % (Auto) 12.1 % (0.0-7.3); Platelet Count 233 K/mm3 (140-440); Red Blood Count 4.13 M/mm3 (3.65-5.03); Red Cell Distribution Width 14.7 % (13.2-15.2)
[2022-05-11 07:08] LABS: Alanine Aminotransferase 13 units/L (7-56); Albumin 3.8 g/dL (3.9-5); BUN/Creatinine Ratio 11; Blood Urea Nitrogen 14 mg/dL (9-20); Calcium 8.8 mg/dL (8.4-10.2); Hemolysis Index 22
[2022-05-11] MEDS ORDERED: POTASSIUM CHLORIDE ER 20 MEQ TAB PO ONE (07:29)
--- NOTE | 2022-05-11 07:44 | Emergency Department Report ---
ED Dizziness HPI - General Chief Complaint: Dizziness Stated Complaint: DIZZINESS Time Seen by Provider: 05/11/22 06:10 Source: patient Mode of arrival: Stretcher Limitations: No Limitations - History of Present Illness Initial Comments: Patient is a 66-year-old male presenting to ED with complaint of intermittent dizziness. States he fell yesterday at home. States he experiences palpitations with his dizziness. He reports several similar episodes in the past. He denies syncope. MD Complaint: lightheadedness - Related Data Home Medications Medication Instructions Recorded Confirmed Last Taken Levothyroxine [Synthroid] 50 mcg PO DAILY 06/14/15 06/21/15 Unknown Lisinopril 10 mg PO DAILY 06/14/15 06/21/15 Unknown Triamter/Hctz 37.5-25 mg 1 tab PO DAILY 06/14/15 06/21/15 Unknown Previous Rx's Medication Instructions Recorded Last Taken Type Folic Acid [Folvite] 1 mg PO QDAY #30 tablet 06/23/15 Unknown Rx Thiamine [Vitamin B-1] 100 mg PO QDAY #30 tablet 06/23/15 Unknown Rx Ibuprofen [Motrin 600 MG tab] 600 mg PO Q8H PRN #30 tablet 07/13/16 Unknown Rx Ibuprofen [Motrin] 800 mg PO Q8HR PRN #15 tablet 10/05/16 Unknown Rx HYDROcodone/APAP 7.5-325 [[place] 1 each PO Q6HR PRN #10 tablet 09/24/17 Unknown Rx 7.5-325 mg TAB] HYDROcodone/APAP 7.5-325 [[place] 1 each PO Q8HR PRN #9 tablet 10/22/17 Unknown Rx 7.5-325 mg TAB] Tamsulosin [Flomax] 0.4 mg PO QDAY #10 cap 10/22/17 Unknown Rx Acetaminophen/Codeine [Tylenol 1 tab PO Q6H PRN #12 tab 01/27/18 Unknown Rx /Codeine # 3 tab] levETIRAcetam [Keppra TAB] 1,000 mg PO BID 30 Days #60 tablet 01/27/18 Unknown Rx Simethicone [Bicarsim] 80 mg PO Q6HR #60 tablet 02/26/18 Unknown Rx Folic Acid [Folvite] 1 mg PO QDAY #30 tablet 02/07/19 Unknown Rx Multivitamin [One Daily 1 each PO QDAY #30 tablet 02/07/19 Unknown Rx Multivitamin] chlordiazePOXIDE [Librium] 25 mg PO Q6HR PRN #15 capsule 02/07/19 Unknown Rx Acetaminophen [Non-Aspirin Extra 500 mg PO Q6HR PRN #30 tablet 03/28/20 Unknown Rx Strength] oxyCODONE [Roxicodone] 5 mg PO Q6HR PRN #15 tablet 03/28/20 Unknown Rx Colchicine 0.6 mg PO Q1H #3 capsule 04/13/20 Unknown Rx HYDROcodone/APAP 5-325 [[place] 1 each PO Q6HR PRN #8 tablet 04/13/20 Unknown Rx 5-325 mg TAB] Prednisone [predniSONE 10 mg 10 mg PO .TAPER #1 tab.ds.pk 04/13/20 Unknown Rx (6-Day Pack, 21 Tabs)] Allergies Allergy/AdvReac Type Severity Reaction Status Date / Time aspirin AdvReac Bleeding Verified 02/07/19 00:16 NSAIDS (Non-Steroidal AdvReac Unknown Verified 02/07/19 00:16 Anti-Inflamma tramadol AdvReac Seizure Verified 02/07/19 00:16 ED Review of Systems ROS: Stated complaint: DIZZINESS Other details as noted in HPI Constitutional: denies: chills, fever Respiratory: denies: cough, shortness of breath, wheezing Cardiovascular: palpitations Endocrine: no symptoms reported Gastrointestinal: denies: abdominal pain, nausea, diarrhea Genitourinary: denies: urgency, dysuria Skin: denies: rash, lesions Neurological: denies: headache, weakness, paresthesias, vertigo Psychiatric: denies: anxiety, depression ED Past Medical Hx - Past Medical History Hx Hypertension: Yes Hx CVA: Yes (TIA,CVA WITH LEFT-SIDED WEAKNESS) Hx Heart Attack/AMI: Yes Hx Congestive Heart Failure: Yes Hx Diabetes: Yes Hx Deep Vein Thrombosis: No Hx Pulmonary Embolism: No Hx GERD: Yes Hx Liver Disease: Yes (CYST) Hx Renal Disease: No Hx Sickle Cell Disease: No Hx Arthritis: No Hx Headaches / Migraines: Yes Hx Seizures: Yes Hx Kidney Stones: Yes Hx Psychiatric Treatment: No Hx Asthma: No Hx COPD: No Hx Tuberculosis: No Hx Dementia: No Hx HIV: No Additional medical history: gout. bleeding ulcers. Hypothyroidism anemia. carpal tunnel - Surgical History Additional Surgical History: spleen removal, hernia repair, stomach ulcer surgery - Social History Smoking Status: Unknown if ever smoked Substance Use Type: None - Medications Home Medications: Home Medications Medication Instructions Recorded Confirmed Last Taken Type Levothyroxine [Synthroid] 50 mcg PO DAILY 06/14/15 06/21/15 Unknown History Lisinopril 10 mg PO DAILY 06/14/15 06/21/15 Unknown History Triamter/Hctz 37.5-25 mg 1 tab PO DAILY 06/14/15 06/21/15 Unknown History Folic Acid [Folvite] 1 mg PO QDAY #30 tablet 06/23/15 Unknown Rx Thiamine [Vitamin B-1] 100 mg PO QDAY #30 tablet 06/23/15 Unknown Rx Ibuprofen [Motrin 600 MG tab] 600 mg PO Q8H PRN #30 tablet 07/13/16 Unknown Rx Ibuprofen [Motrin] 800 mg PO Q8HR PRN #15 tablet 10/05/16 Unknown Rx HYDROcodone/APAP 7.5-325 [[place] 1 each PO Q6HR PRN #10 tablet 09/24/17 Unknown Rx 7.5-325 mg TAB] HYDROcodone/APAP 7.5-325 [[place] 1 each PO Q8HR PRN #9 tablet 10/22/17 Unknown Rx 7.5-325 mg TAB] Tamsulosin [Flomax] 0.4 mg PO QDAY #10 cap 10/22/17 Unknown Rx Acetaminophen/Codeine [Tylenol 1 tab PO Q6H PRN #12 tab 01/27/18 Unknown Rx /Codeine # 3 tab] levETIRAcetam [Keppra TAB] 1,000 mg PO BID 30 Days #60 tablet 01/27/18 Unknown Rx Simethicone [Bicarsim] 80 mg PO Q6HR #60 tablet 02/26/18 Unknown Rx Folic Acid [Folvite] 1 mg PO QDAY #30 tablet 02/07/19 Unknown Rx Multivitamin [One Daily 1 each PO QDAY #30 tablet 02/07/19 Unknown Rx Multivitamin] chlordiazePOXIDE [Librium] 25 mg PO Q6HR PRN #15 capsule 02/07/19 Unknown Rx Acetaminophen [Non-Aspirin Extra 500 mg PO Q6HR PRN #30 tablet 03/28/20 Unknown Rx Strength] oxyCODONE [Roxicodone] 5 mg PO Q6HR PRN #15 tablet 03/28/20 Unknown Rx Colchicine 0.6 mg PO Q1H #3 capsule 04/13/20 Unknown Rx HYDROcodone/APAP 5-325 [[place] 1 each PO Q6HR PRN #8 tablet 04/13/20 Unknown Rx 5-325 mg TAB] Prednisone [predniSONE 10 mg 10 mg PO .TAPER #1 tab.ds.pk 04/13/20 Unknown Rx (6-Day Pack, 21 Tabs)] ED Physical Exam - General Limitations: No Limitations General appearance: alert, in no apparent distress - Head Head exam: Present: atraumatic, normocephalic - Respiratory Respiratory exam: Present: normal lung sounds bilaterally. Absent: respiratory distress - Cardiovascular Cardiovascular Exam: Present: regular rate, normal rhythm, normal heart sounds - GI/Abdominal GI/Abdominal exam: Present: soft. Absent: distended, tenderness - Rectal Rectal exam: Present: deferred - Neurological Exam Neurological exam: Present: alert, oriented X3 - Psychiatric Psychiatric exam: Present: normal affect, normal mood - Skin Skin exam: Present: warm, dry, intact, normal color ED Course Vital Signs 05/11/22 05/11/22 05/11/22 02:48 02:52 02:55 Temperature 97.8 F Pulse Rate 61 58 L Respiratory 15 15 Rate Blood Pressure 107/73 Blood Pressure 107/73 [Right] O2 Sat by Pulse 99 96 96 Oximetry 05/11/22 05/11/22 05/11/22 03:00 03:16 03:30 Temperature Pulse Rate 58 L 58 L 64 Respiratory 17 14 13 Rate Blood Pressure 107/73 107/73 107/73 Blood Pressure [Right] O2 Sat by Pulse 96 95 96 Oximetry 05/11/22 05/11/22 05/11/22 03:46 04:00 04:16 Temperature Pulse Rate 56 L 57 L 60 Respiratory 16 13 16 Rate Blood Pressure 99/65 107/73 107/73 Blood Pressure [Right] O2 Sat by Pulse 97 96 94 Oximetry 05/11/22 05/11/22 05/11/22 04:30 04:46 05:00 Temperature Pulse Rate 62 60 62 Respiratory 15 12 15 Rate Blood Pressure 99/65 99/65 106/73 Blood Pressure [Right] O2 Sat by Pulse 94 96 96 Oximetry 05/11/22 05/11/22 05/11/22 05:16 05:30 05:46 Temperature Pulse Rate 55 L 56 L 56 L Respiratory 15 14 12 Rate Blood Pressure 106/73 106/73 107/77 Blood Pressure [Right] O2 Sat by Pulse 95 95 95 Oximetry 05/11/22 05/11/22 05/11/22 06:00 06:16 06:30 Temperature Pulse Rate 53 L 53 L Respiratory 13 13 Rate Blood Pressure 107/77 107/77 107/77 Blood Pressure [Right] O2 Sat by Pulse 97 97 97 Oximetry 05/11/22 05/11/22 05/11/22 06:46 07:00 07:16 Temperature Pulse Rate 54 L 56 L 56 L Respiratory 15 9 L 10 L Rate Blood Pressure 107/77 136/89 136/89 Blood Pressure [Right] O2 Sat by Pulse 98 97 97 Oximetry 05/11/22 05/11/22 05/11/22 07:30 07:48 08:00 Temperature Pulse Rate 57 L Respiratory 13 Rate Blood Pressure 136/89 136/89 136/89 Blood Pressure [Right] O2 Sat by Pulse 95 96 99 Oximetry ED Medical Decision Making - Lab Data Result diagrams: 05/11/22 06:35 05/11/22 06:35 - Medical Decision Making CBC grossly unremarkable. CMP grossly unremarkable except for mild hypokalemia of 3.3. He was given oral replacement. EKG shows sinus bradycardia with rate of 55, otherwise unremarkable. Patient is hemodynamically stable. He currently denies any dizziness. I recommended that he follow-up with his PCP/cardiology at his earliest convenience for consideration of Holter monitor. Stable for discharge. Critical care attestation.: If time is entered above; I have spent that time in minutes in the direct care of this critically ill patient, excluding procedure time. ED Disposition Clinical Impression: Nonspecific dizziness, Intermittent palpitations, Hypokalemia Disposition: 01 HOME / SELF CARE / HOMELESS Is pt being admited?: No Condition: Stable Instructions: Palpitations, [id number], Dizziness, [id number] Additional Instructions: Please follow-up with your regular doctor and/or rod drawer for consideration of Holter monitor/event recorder. Please return if your symptoms worsen. Time of Disposition: 08:16
[2022-05-11 08:06] VITALS: BP 136/89
--- NOTE | 2022-05-11 09:20 | Electrocardiograph Report ---
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
--- NOTE | 2022-05-11 09:21 | Electrocardiograph Report ---
[facility] Test Date: 2022-05-11 Test Time: 06:32:23 Pat Name: ISIDRO RAMIREZ Department: Room: Gender: M Process Trainer: NADEGE : 1955 Requested By: BRUCE SINGH Order Number: [id number] Reading MD: Ezio Jensen Measurements Intervals [place] Rate: 55 P: 23 GA: 181 QRS: 39 QRSD: 88 T: 55 QT: 472 QTc: 453 Interpretive Statements Sinus bradycardia Compared to ECG 05/11/2022 03:02:42 Sinus rhythm no longer present Electronically Signed On 05-11-2022 9:21:00 EDT by Ezio Jensen
== END 2022-05-11 09:03 | disposition home or self-care (01) ==
LOC: ED 02:17
DX: R42 Dizziness and giddiness (principal); R00.2 Palpitations; E87.6 Hypokalemia; Z88.6 Allergy status to analgesic agent; Z88.5 Allergy status to narcotic agent
CPT/HCPCS: 36415; 80053; 84484; 85025; 93005; 99284